=== PATIENT | male | born 1935 | race Caucasian/White ===

== ENCOUNTER → 2017-10-15 | Outpatient (CLI) | payer MEDICARE, BC ==
[~2017-10-15] MED LIST: EPINEPHRINE 1 MG/ML, 1ML ONE; LIDOCAINE/PF 1%, 30ML ONE; TAMS-11 PO; THROMBIN 5,000 UNIT VIAL TP ONE
== END | disposition home or self-care (01) ==
LOC: WOUND 08:49
PROVIDERS: ATTEND Internal Medicine Cardiovascular Disease
DX: Z01.818 Encounter for other preprocedural examination (principal); I25.2 Old myocardial infarction; I10 Essential (primary) hypertension; Z85.46 Personal history of malignant neoplasm of prostate; Z87.891 Personal history of nicotine dependence; Z85.51 Personal history of malignant neoplasm of bladder
CPT/HCPCS: G0463; J0171; J3490; WOU0463

== ENCOUNTER 2017-10-16 06:53 | Inpatient (IN) | payer MEDICARE, BC ==
[2017-10-07 13:58] VITALS: BP 163/91
[~2017-10-16] VITALS: Ht 177.8 cm; Wt 72.1 kg
[~2017-10-16 06:53] MED LIST changes: -EPINEPHRINE 1 MG/ML, 1ML ONE; -LIDOCAINE/PF 1%, 30ML ONE; -THROMBIN 5,000 UNIT VIAL TP ONE
[2017-10-16] MEDS ORDERED: LACTATED RINGERS 1,000 ML IV SCH (07:23)
[2017-10-16] MEDS ORDERED: LIDOCAINE 1%, 2ML SQ PRN (07:30)
[2017-10-16] MEDS ORDERED: MIDAZOLAM 1 MG/ML, 2ML ONE (08:08)
[2017-10-16] MEDS ORDERED: FENTANYL PF 100 MCG/2ML ONE ×3 (08:09→16:07)
[2017-10-16] MEDS ORDERED: ESMOLOL 100 MG/10 ML ONE (09:18)
[2017-10-16] MEDS ORDERED: PHENYLEPHRINE 10 MG/ML ONE (09:18)
[2017-10-16] MEDS ORDERED: LIDOCAINE 1%-EPI 1:100K, 30ML INFIL ONE (10:04)
[2017-10-16] MEDS ORDERED: THROMBIN 5,000 UNIT VIAL TP ONE ×2 (10:05→10:22)
[2017-10-16] MEDS ORDERED: LIDOCAINE/PF 1%, 30ML ONE (10:21)
[2017-10-16] MEDS ORDERED: CEFTRIAXONE 1,000 MG ONE ×2 (10:21→10:26)
[2017-10-16] MEDS ORDERED: EPINEPHRINE 1 MG/ML, 1ML ONE (10:22)
[2017-10-16] MEDS ORDERED: BUPIVACAINE/PF 0.5%, 30ML 62.5 ML in SODIUM CHLORIDE 0.9% 187.5 ML EPIDCONT SCH (11:00)
[2017-10-16] MEDS ORDERED: EPHEDRINE 50 MG/ML, 1ML ONE (11:19)
[2017-10-16] MEDS ORDERED: DEXAMETHASONE 4 MG/ML, 1ML ONE (11:20)
[2017-10-16] MEDS ORDERED: ROCURONIUM 10 MG/ML,10ML ONE (11:20)
[2017-10-16] MEDS ORDERED: PROPOFOL 10 MG/ML, 20ML ONE (11:20)
[2017-10-16] MEDS ORDERED: NEOSTIGMINE 1 MG/ML, 10ML ONE (11:20)
[2017-10-16] MEDS ORDERED: SUCCINYLCHOLINE 20 MG/ML, 10ML ONE (11:20)
[2017-10-16] MEDS ORDERED: ONDANSETRON 2MG/ML, 2ML ONE (11:20)
[2017-10-16] MEDS ORDERED: GLYCOPYRROLATE 0.2MG/1ML, 5ML ONE (11:20)
[2017-10-16] MEDS ORDERED: hydrALAzine 20 MG/ML, 1ML IV PRN (11:30)
[2017-10-16] MEDS ORDERED: MEPERIDINE/PF 25MG/0.5ML IVPush PRN (11:30)
[2017-10-16] MEDS ORDERED: PROMETHAZINE 25 MG/ML, 1ML IV PRN (11:30)
[2017-10-16] MEDS ORDERED: ALBUTEROL SULFATE 2.5 MG/3 ML NPPB PRN (11:30)
[2017-10-16] MEDS ORDERED: MIDAZOLAM 1 MG/ML, 2ML IV PRN (11:30)
[2017-10-16] MEDS ORDERED: HYDROcodone/APAP 7.5-325MG/15ML UDC PO PRN (11:30)
[2017-10-16] MEDS ORDERED: ONDANSETRON 2MG/ML, 2ML IVPush PRN (11:30)
[2017-10-16] MEDS ORDERED: LABETALOL 5MG/ML, 20ML IV PRN (11:30)
[2017-10-16] MEDS ORDERED: DIAZEPAM 5 MG/ML, 2ML IVPush PRN (11:30)
[2017-10-16] MEDS ORDERED: EPHEDRINE 50 MG/ML, 1ML IVPush PRN ×2 (11:30→17:30)
[2017-10-16] MEDS ORDERED: METOPROLOL 1 MG/ML, 5ML IV PRN (11:30)
[2017-10-16] MEDS ORDERED: ACETAMINOPHEN 325 MG TABLET PO PRN (11:30)
[2017-10-16] MEDS ORDERED: FENTANYL PF 100 MCG/2ML IV PRN (11:30)
[2017-10-16] MEDS ORDERED: OXYcodone 5 MG/5 ML ORAL.SOL UDC PO PRN (11:30)
[2017-10-16] MEDS ORDERED: HYDROmorphone 1 MG/ML, 1ML IV PRN (11:30)
[2017-10-16 15:32] LABS: ALBUMIN 2.6 g/dL (3.4-5.0); ANION GAP 13 mmol/L (5-15); CALCIUM 7.3 mg/dL (8.5-10.1); CHLORIDE 112 mmol/L (98-107); CREATININE 1.19 mg/dL (0.7-1.3)
[2017-10-16 16:18] LABS: TROPONIN I 0.022 ng/mL (0.000-0.045)
[2017-10-16 16:54] VITALS: BP 156/70
[2017-10-16] MEDS ORDERED: DO NOT GIVE XX SCH (17:30)
[2017-10-16] MEDS ORDERED: MEPERIDINE/PF 25MG/0.5ML IV PRN (17:30)
[2017-10-16] MEDS ORDERED: NALOXONE 0.4 MG/ML, 1ML IV PRN (17:30)
[2017-10-16] MEDS ORDERED: FENTANYL PF 100 MCG/2ML EPIDPUSH PRN (17:30)
[2017-10-16] MEDS ORDERED: DO NOT GIVE MC SCH (17:30)
[2017-10-16] MEDS ORDERED: METOCLOPRAMIDE 5 MG/ML, 2ML IV PRN (17:30)
[2017-10-16 19:39] VITALS: BP 108/67
[2017-10-16] MEDS ORDERED: METOPROLOL 1 MG/ML, 5ML IVPush PRN (20:00)
[2017-10-16] MEDS: D5%-0.45NACL+KCL 20MEQ 1,000 ML IV SCH (20:08)
[2017-10-16] MEDS: morphine SULFATE 10 MG/ML, 1ML IV PRN ×2 (20:33→23:36)
[2017-10-17] VITALS (8 sets, daily range): BP systolic 85–162; BP diastolic 47–79
[2017-10-17] MEDS: morphine SULFATE 10 MG/ML, 1ML IV PRN ×3 (03:01→22:07)
[2017-10-17] MEDS: D5%-0.45NACL+KCL 20MEQ 1,000 ML IV SCH ×3 (04:13→21:11)
[2017-10-17 05:46] LABS: ANION GAP 6 mmol/L (5-15); CALCIUM 7.6 mg/dL (8.5-10.1); CHLORIDE 109 mmol/L (98-107); CREATININE 1.25 mg/dL (0.7-1.3)
[2017-10-17] MEDS: ENOXAPARIN 40 MG/0.4 ML SQ SCH (08:00)
[2017-10-17] MEDS: CEFTRIAXONE PMX 2GM/50ML 50 ML IVPB SCH (09:32)
[2017-10-17] MEDS: ASPIRIN 81 MG TABLET EC PO SCH (09:42)
[2017-10-17] MEDS: METOPROLOL TARTRATE 25 MG TABLET PO SCH ×2 (09:42→21:12)
[2017-10-17] MEDS: BUPIVACAINE/PF 0.5%, 30ML 62.5 ML in SODIUM CHLORIDE 0.9% 187.5 ML EPIDCONT SCH (11:00)
[2017-10-18] VITALS (7 sets, daily range): BP systolic 107–156; BP diastolic 61–77
[2017-10-18] MEDS: D5%-0.45NACL+KCL 20MEQ 1,000 ML IV SCH ×3 (05:34→17:20)
[2017-10-18 05:45] LABS: CALCIUM 7.6 mg/dL (8.5-10.1); CHLORIDE 108 mmol/L (98-107); MEAN CORPUSCULAR VOLUME 88.4 fL (81-97); MEAN PLATELET VOLUME 7.9 fL (7.4-10.4); PLATELET COUNT 194 x10^3/uL (130-400); RED BLOOD COUNT 3.86 x10^6/uL (4.38-5.82); RED CELL DISTRIBUTION WIDTH 12.9 % (9.4-14.8)
[2017-10-18 05:53] LABS: ALANINE AMINOTRANSFERASE 17 U/L (12-78); ALBUMIN 2.4 g/dL (3.4-5.0); ALKALINE PHOSPHATASE 45 U/L (45-117); ANION GAP 5 mmol/L (5-15); BILIRUBIN,TOTAL 0.8 mg/dL (0.2-1.0); CREATININE 1.07 mg/dL (0.7-1.3); TOTAL PROTEIN 5.5 g/dL (6.4-8.2); TROPONIN I 0.166 ng/mL (0.000-0.045)
[2017-10-18 06:19] LABS: BASOPHILS # (AUTO) 0.04 x10^3/uL (0-0.1); BASOPHILS % (AUTO) 0 % (0-1); EOSINOPHILS # (AUTO) 0.09 x10^3/uL (0-0.4); EOSINOPHILS % (AUTO) 1 % (1-7); LYMPHOCYTES # (AUTO) 1.26 x10^3/uL (1-3.4); LYMPHOCYTES % (AUTO) 7 % (22-44); MD SCAN; MONOCYTES # (AUTO) 1.11 x10^3/uL (0.2-0.8); MONOCYTES % (AUTO) 6 % (2-9); NEUTROPHILS # (AUTO) 15.35 x10^3/uL (1.8-6.8); NEUTROPHILS % (AUTO) 86 % (42-75)
[2017-10-18] MEDS: ENOXAPARIN 40 MG/0.4 ML SQ SCH (08:00)
[2017-10-18] MEDS: ASPIRIN 81 MG TABLET EC PO SCH (09:26)
[2017-10-18] MEDS: CEFTRIAXONE PMX 2GM/50ML 50 ML IVPB SCH (09:26)
[2017-10-18] MEDS: METOPROLOL TARTRATE 25 MG TABLET PO SCH ×2 (09:28→17:21)
[2017-10-18] MEDS: BUPIVACAINE/PF 0.5%, 30ML 62.5 ML in SODIUM CHLORIDE 0.9% 187.5 ML EPIDCONT SCH (11:00)
[2017-10-18] MEDS ORDERED: METOPROLOL TARTRATE 25 MG TABLET PO SCH (18:00)
[2017-10-18] MEDS: HYDROcodone/APAP 5/325 TABLET PO PRN ×2 (18:50→23:34)
[2017-10-18] MEDS: DIPHENHYDRAMINE/ZINC CRM 2%, 30GM TP PRN (20:58)
[2017-10-18] MEDS: ATORVASTATIN 40 MG TABLET PO SCH (21:00)
[2017-10-19 01:32] VITALS: BP 125/70
[2017-10-19] MEDS: HYDROcodone/APAP 5/325 TABLET PO PRN ×2 (05:29→18:16)
[2017-10-19 08:34] VITALS: BP 130/77
[2017-10-19] MEDS: ASPIRIN 81 MG TABLET EC PO SCH (09:08)
[2017-10-19] MEDS: CEFTRIAXONE PMX 2GM/50ML 50 ML IVPB SCH (09:08)
[2017-10-19] MEDS: METOPROLOL TARTRATE 25 MG TABLET PO SCH ×2 (09:08→18:13)
[2017-10-19] MEDS: DIPHENHYDRAMINE/ZINC CRM 2%, 30GM TP PRN ×2 (09:08→22:17)
[2017-10-19] MEDS: ENOXAPARIN 40 MG/0.4 ML SQ SCH (09:09)
[2017-10-19] MEDS: BUPIVACAINE/PF 0.5%, 30ML 62.5 ML in SODIUM CHLORIDE 0.9% 187.5 ML EPIDCONT SCH (11:00)
[2017-10-19 13:36] VITALS: BP 146/71
[2017-10-19] MEDS: D5%-0.45NACL+KCL 20MEQ 1,000 ML IV SCH (13:47)
[2017-10-19] MEDS ORDERED: ALBUTEROL SULFATE 2.5 MG/3 ML ONE (16:17)
[2017-10-19] MEDS ORDERED: ALBUTEROL SULFATE 2.5 MG/3 ML NPPB PRN (16:30)
[2017-10-19 19:40] VITALS: BP 128/53
[2017-10-19] MEDS: ATORVASTATIN 40 MG TABLET PO SCH (20:29)
[2017-10-20] MEDS: D5%-0.45NACL+KCL 20MEQ 1,000 ML IV SCH (01:26)
[2017-10-20] MEDS: HYDROcodone/APAP 5/325 TABLET PO PRN (01:30)
[2017-10-20 01:43] VITALS: BP 126/65
[2017-10-20] MEDS: METOPROLOL TARTRATE 25 MG TABLET PO SCH (06:09)
[2017-10-20 07:02] VITALS: BP 158/74
[2017-10-20] MEDS: ENOXAPARIN 40 MG/0.4 ML SQ SCH (08:43)
[2017-10-20] MEDS: CEFTRIAXONE PMX 2GM/50ML 50 ML IVPB SCH (08:43)
[2017-10-20] MEDS: ASPIRIN 81 MG TABLET EC PO SCH (08:44)
[2017-10-20] MEDS: DIPHENHYDRAMINE/ZINC CRM 2%, 30GM TP PRN (08:49)
[2017-10-20] MEDS ORDERED: FUROSEMIDE 20 MG TABLET PO SCH (11:00)
[2017-10-20] MEDS: morphine SULFATE 10 MG/ML, 1ML IV PRN ×3 (11:33→17:14)
[2017-10-20] MEDS: ONDANSETRON 2MG/ML, 2ML IV PRN (11:33)
[2017-10-20 11:58] VITALS: BP 145/71
[2017-10-20 12:14] VITALS: BP 106/63
[2017-10-20] MEDS ORDERED: METRONIDAZOLE IV ONE (12:30)
[2017-10-20] MEDS ORDERED: [UNRECOGNIZED DRUG - MIXTURE] IV ONE (12:38)
[2017-10-20 12:44] VITALS: BP 151/70
[2017-10-20 13:22] VITALS: BP 121/63
[2017-10-20] MEDS ORDERED: PROPOFOL 10 MG/ML, 20ML ONE (14:25)
[2017-10-20] MEDS ORDERED: FENTANYL PF 100 MCG/2ML ONE (14:25)
[2017-10-20] MEDS ORDERED: SUCCINYLCHOLINE 20 MG/ML, 10ML ONE (14:25)
[2017-10-20] MEDS ORDERED: ROCURONIUM 10 MG/ML,10ML ONE (14:25)
[2017-10-20] MEDS ORDERED: VASOPRESSIN 20 UNIT/ML, 1ML ONE (14:25)
[2017-10-20] MEDS ORDERED: PROPOFOL 100 ML IV ONE (16:52)
[2017-10-20] MEDS ORDERED: morphine SULFATE 10 MG/ML, 1ML IVPush ONE (18:00)
[2017-10-20] MEDS ORDERED: MORPHINE SULFATE 4 MG/ML, 1ML IVPush ONE (18:00)
[2017-10-20] MEDS ORDERED: LIDOCAINE-MPF 1%, 2ML ENDO PRN (18:30)
[2017-10-20] MEDS ORDERED: PIPERACILLIN/TAZO/PMX 3.375GM 50 ML IV SCH (18:30)
[2017-10-20] MEDS ORDERED: PHARMACY MAY ADJ FOR RENAL FX MC SCH (18:30)
[2017-10-20] MEDS: SODIUM CHLORIDE 0.9% 1,000 ML IV SCH (19:37)
[2017-10-20] MEDS: PIPERACILLIN/TAZO 3.375 GM in SODIUM CHLORIDE 0.9% 50 ML IV SCH (19:37)
[2017-10-20] MEDS: METRONIDAZOLE PMX 500MG/100ML 100 ML IV SCH (20:47)
[2017-10-20] MEDS: ATORVASTATIN 40 MG TABLET PO SCH (21:00)
[2017-10-21] MEDS: PIPERACILLIN/TAZO 3.375 GM in SODIUM CHLORIDE 0.9% 50 ML IV SCH ×4 (00:01→18:15)
[2017-10-21] MEDS: morphine SULFATE 10 MG/ML, 1ML IV PRN ×3 (00:11→16:26)
[2017-10-21] MEDS: NOREPINEPHRINE 4 MG in SODIUM CHLORIDE 0.9% 246 ML IV PRN ×2 (01:19→06:32)
[2017-10-21] MEDS: PROPOFOL 100 ML IV PRN ×2 (01:20→07:30)
[2017-10-21] MEDS: SODIUM CHLORIDE 0.9% 1,000 ML IV SCH ×4 (02:30→18:15)
[2017-10-21 04:27] LABS: ALBUMIN 1.7 g/dL (3.4-5.0); ANION GAP 7 mmol/L (5-15); CHLORIDE 110 mmol/L (98-107)
[2017-10-21 04:30] VITALS: BP 126/52
[2017-10-21 04:30] LABS: ALANINE AMINOTRANSFERASE 11 U/L (12-78); ALKALINE PHOSPHATASE 47 U/L (45-117); BILIRUBIN,TOTAL 2.4 mg/dL (0.2-1.0); CREATININE 1.62 mg/dL (0.7-1.3); TOTAL PROTEIN 5.6 g/dL (6.4-8.2)
[2017-10-21 04:36] LABS: MEAN CORPUSCULAR HEMOGLOBIN 29.9 pg (27.5-34.5); MEAN CORPUSCULAR HGB CONC 33.9 g/dL (33.2-36.2); MEAN CORPUSCULAR VOLUME 88.1 fL (81-97); MEAN PLATELET VOLUME 7.4 fL (7.4-10.4); PLATELET COUNT 324 x10^3/uL (130-400); RED BLOOD COUNT 4.37 x10^6/uL (4.38-5.82); RED CELL DISTRIBUTION WIDTH 12.6 % (9.4-14.8)
[2017-10-21] MEDS: METRONIDAZOLE PMX 500MG/100ML 100 ML IV SCH ×3 (05:09→22:17)
[2017-10-21 05:39] LABS: MD YES
[2017-10-21 05:41] LABS: BAND#(MANUAL) 6.05 x10^3/uL; BANDS%(MANUAL) 31 % (0-7); LYMPH#(MANUAL) 0.98 x10^3/uL (1-3.4); LYMPHS% (MANUAL) 5 % (22-44); METAMYELOCYTES% (MANUAL) 1 % (0-1); MONOS#(MANUAL) 1.37 x10^3/uL (0.3-2.7); MONOS% (MANUAL) 7 % (2-9); SEG#(MANUAL) 10.92 x10^3/uL (1.8-6.8); SEGS% (MANUAL) 56 % (42-75)
[2017-10-21 05:42] LABS: PMNS WITH VACUOLES 1+
[2017-10-21 05:43] LABS: <PLATELET ESTIMATE> ADEQUATE; <PLT MORPHOLOGY> NORMAL PLT MORPH; POLYCHROMASIA 1+
[2017-10-21] MEDS: PANTOPRAZOLE 40 MG IV IV SCH (07:27)
[2017-10-21] MEDS: ENOXAPARIN 40 MG/0.4 ML SQ SCH (13:17)
[2017-10-21] MEDS: ASPIRIN 81 MG TABLET EC PO SCH (13:18)
[2017-10-21] MEDS: MELATONIN 5 MG TABLET PO PRN (22:17)
[2017-10-21] MEDS: ATORVASTATIN 40 MG TABLET PO SCH (22:17)
[2017-10-22] MEDS: PIPERACILLIN/TAZO 3.375 GM in SODIUM CHLORIDE 0.9% 50 ML IV SCH ×4 (00:54→19:40)
[2017-10-22] MEDS: SODIUM CHLORIDE 0.9% 1,000 ML IV SCH ×5 (03:08→22:45)
[2017-10-22 04:00] VITALS: BP 120/52
[2017-10-22 04:28] LABS: BASOPHILS % (AUTO) 0 % (0-1); EOSINOPHILS # (AUTO) 0.08 x10^3/uL (0-0.4); EOSINOPHILS % (AUTO) 1 % (1-7); LYMPHOCYTES % (AUTO) 3 % (22-44); MD NO; MEAN CORPUSCULAR HEMOGLOBIN 30.2 pg (27.5-34.5); MEAN CORPUSCULAR HGB CONC 33.9 g/dL (33.2-36.2); MEAN CORPUSCULAR VOLUME 89.1 fL (81-97); MEAN PLATELET VOLUME 7.1 fL (7.4-10.4); MONOCYTES # (AUTO) 0.67 x10^3/uL (0.2-0.8); MONOCYTES % (AUTO) 4 % (2-9); NEUTROPHILS # (AUTO) 15.02 x10^3/uL (1.8-6.8); NEUTROPHILS % (AUTO) 92 % (42-75); PLATELET COUNT 271 x10^3/uL (130-400); RED BLOOD COUNT 3.55 x10^6/uL (4.38-5.82); RED CELL DISTRIBUTION WIDTH 13.2 % (9.4-14.8)
[2017-10-22] MEDS: METRONIDAZOLE PMX 500MG/100ML 100 ML IV SCH ×3 (05:31→21:25)
[2017-10-22] MEDS: PANTOPRAZOLE 40 MG IV IV SCH (07:42)
[2017-10-22] MEDS: ASPIRIN 81 MG TABLET EC PO SCH (07:42)
[2017-10-22 08:37] LABS: ALANINE AMINOTRANSFERASE 12 U/L (12-78); ALBUMIN 1.5 g/dL (3.4-5.0); ANION GAP 7 mmol/L (5-15); CHLORIDE 117 mmol/L (98-107); CREATININE 1.51 mg/dL (0.7-1.3)
[2017-10-22 08:40] LABS: ALKALINE PHOSPHATASE 48 U/L (45-117); BILIRUBIN,TOTAL 1.4 mg/dL (0.2-1.0); TOTAL PROTEIN 5.3 g/dL (6.4-8.2)
[2017-10-22] MEDS ORDERED: DOCUSATE 100 MG CAPSULE PO PRN (12:00)
[2017-10-22 12:05] VITALS: BP 118/65
[2017-10-22] MEDS: ENOXAPARIN 40 MG/0.4 ML SQ SCH (13:52)
[2017-10-22] MEDS: ONDANSETRON 2MG/ML, 2ML IV PRN (19:38)
[2017-10-22] MEDS: morphine SULFATE 10 MG/ML, 1ML IV PRN (19:59)
[2017-10-22] MEDS: MELATONIN 5 MG TABLET PO PRN (21:25)
[2017-10-22] MEDS: ATORVASTATIN 40 MG TABLET PO SCH (21:25)
[2017-10-22 22:02] VITALS: BP 126/65
[2017-10-23] MEDS: morphine SULFATE 10 MG/ML, 1ML IV PRN ×6 (00:09→21:40)
[2017-10-23] MEDS: PIPERACILLIN/TAZO 3.375 GM in SODIUM CHLORIDE 0.9% 50 ML IV SCH ×4 (01:15→23:11)
[2017-10-23 01:38] VITALS: BP 136/67
[2017-10-23] MEDS: SODIUM CHLORIDE 0.9% 1,000 ML IV SCH ×3 (04:11→23:11)
[2017-10-23] MEDS: METRONIDAZOLE PMX 500MG/100ML 100 ML IV SCH ×3 (04:54→21:33)
[2017-10-23 05:32] LABS: MEAN CORPUSCULAR HEMOGLOBIN 29.9 pg (27.5-34.5); MEAN CORPUSCULAR HGB CONC 33.7 g/dL (33.2-36.2); MEAN CORPUSCULAR VOLUME 88.7 fL (81-97); MEAN PLATELET VOLUME 7.3 fL (7.4-10.4); PLATELET COUNT 302 x10^3/uL (130-400); RED BLOOD COUNT 3.51 x10^6/uL (4.38-5.82); RED CELL DISTRIBUTION WIDTH 13.2 % (9.4-14.8)
[2017-10-23 06:02] LABS: BASOPHILS % (AUTO) 0 % (0-1); EOSINOPHILS # (AUTO) 0.19 x10^3/uL (0-0.4); EOSINOPHILS % (AUTO) 1 % (1-7); LYMPHOCYTES # (AUTO) 0.82 x10^3/uL (1-3.4); LYMPHOCYTES % (AUTO) 4 % (22-44); MD SCAN; MONOCYTES % (AUTO) 4 % (2-9); NEUTROPHILS # (AUTO) 18.42 x10^3/uL (1.8-6.8); NEUTROPHILS % (AUTO) 92 % (42-75)
[2017-10-23 08:01] VITALS: BP 149/73
[2017-10-23] MEDS: ONDANSETRON 2MG/ML, 2ML IV PRN ×2 (08:06→18:45)
[2017-10-23] MEDS: PANTOPRAZOLE 40 MG IV IV SCH (08:06)
[2017-10-23] MEDS: ASPIRIN 81 MG TABLET EC PO SCH (09:51)
[2017-10-23 12:11] LABS: ALBUMIN 1.5 g/dL (3.4-5.0); CALCIUM 7.5 mg/dL (8.5-10.1); CHLORIDE 120 mmol/L (98-107)
[2017-10-23 12:22] LABS: ALANINE AMINOTRANSFERASE 10 U/L (12-78); ALKALINE PHOSPHATASE 74 U/L (45-117); ANION GAP 10 mmol/L (5-15); BILIRUBIN,TOTAL 0.9 mg/dL (0.2-1.0); CREATININE 1.09 mg/dL (0.7-1.3); PREALBUMIN 6.6 mg/dL (20.0-40.0); TOTAL PROTEIN 5.8 g/dL (6.4-8.2)
[2017-10-23] MEDS: DIPHENHYDRAMINE/ZINC CRM 2%, 30GM TP PRN (13:57)
[2017-10-23 14:00] VITALS: BP 156/75
[2017-10-23] MEDS ORDERED: POTASSIUM PHOSPHATE 44 MEQ in DEXTROSE 5% 500 ML IV ONE (14:00)
[2017-10-23] MEDS: ENOXAPARIN 40 MG/0.4 ML SQ SCH (15:12)
[2017-10-23] MEDS ORDERED: SODIUM CHLORIDE 0.9% 1,000 ML IV SCH ×2 (16:30→17:00)
[2017-10-23] MEDS ORDERED: FILTER, DISP 1.2 MICRON FOR TPN/PVN IV PRN (17:00)
[2017-10-23] MEDS ORDERED: AMINO ACID 10% IV SCH (17:00)
[2017-10-23] MEDS ORDERED: [UNRECOGNIZED DRUG - OTHER] IV SCH (17:00)
[2017-10-23] MEDS ORDERED: DEXTROSE 70% IV SCH (17:00)
[2017-10-23] MEDS ORDERED: DEXTROSE 50%, 50ML SYRINGE IVPush PRN (17:00)
[2017-10-23] MEDS ORDERED: FAT EMULSIONS IV SCH (17:00)
[2017-10-23] MEDS ORDERED: DEXTROSE 10% 500 ML IV PRN (17:00)
[2017-10-23] MEDS ORDERED: TPN PER PHARMACY MC PRN (17:00)
[2017-10-23 20:06] VITALS: BP 136/69
[2017-10-23] MEDS: ATORVASTATIN 40 MG TABLET PO SCH (21:34)
[2017-10-23] MEDS: INSULIN REGULAR MEDIUM DOSE Q6H X 48HRS SQ-INSULIN SCH (23:10)
[2017-10-24] MEDS: morphine SULFATE 10 MG/ML, 1ML IV PRN ×5 (00:59→21:21)
[2017-10-24] MEDS: MELATONIN 5 MG TABLET PO PRN ×2 (00:59→22:50)
[2017-10-24 02:30] VITALS: BP 143/72
[2017-10-24] MEDS: PIPERACILLIN/TAZO 3.375 GM in SODIUM CHLORIDE 0.9% 50 ML IV SCH ×3 (03:26→14:57)
[2017-10-24] MEDS: INSULIN REGULAR MEDIUM DOSE Q6H X 48HRS SQ-INSULIN SCH ×4 (03:29→20:39)
[2017-10-24] MEDS: METRONIDAZOLE PMX 500MG/100ML 100 ML IV SCH ×3 (05:38→20:31)
[2017-10-24 06:37] LABS: MEAN CORPUSCULAR HEMOGLOBIN 29.7 pg (27.5-34.5); MEAN CORPUSCULAR HGB CONC 33.6 g/dL (33.2-36.2); MEAN CORPUSCULAR VOLUME 88.2 fL (81-97); MEAN PLATELET VOLUME 6.6 fL (7.4-10.4); PLATELET COUNT 309 x10^3/uL (130-400); RED BLOOD COUNT 3.39 x10^6/uL (4.38-5.82); RED CELL DISTRIBUTION WIDTH 13.4 % (9.4-14.8)
[2017-10-24 06:49] LABS: ANION GAP 5 mmol/L (5-15); CALCIUM 7.5 mg/dL (8.5-10.1); CHLORIDE 121 mmol/L (98-107); CREATININE 0.95 mg/dL (0.7-1.3); TRIGLYCERIDES 116 mg/dL (50-200)
[2017-10-24 07:27] LABS: BASOPHILS # (AUTO) 0.02 x10^3/uL (0-0.1); BASOPHILS % (AUTO) 0 % (0-1); EOSINOPHILS # (AUTO) 0.53 x10^3/uL (0-0.4); EOSINOPHILS % (AUTO) 3 % (1-7); LYMPHOCYTES # (AUTO) 0.75 x10^3/uL (1-3.4); LYMPHOCYTES % (AUTO) 4 % (22-44); MD SCAN; MONOCYTES # (AUTO) 0.98 x10^3/uL (0.2-0.8); MONOCYTES % (AUTO) 6 % (2-9); NEUTROPHILS # (AUTO) 14.97 x10^3/uL (1.8-6.8); NEUTROPHILS % (AUTO) 87 % (42-75)
[2017-10-24 08:19] VITALS: BP 169/78
[2017-10-24] MEDS: PANTOPRAZOLE 40 MG IV IV SCH (09:05)
[2017-10-24] MEDS: ASPIRIN 81 MG TABLET EC PO SCH (09:06)
[2017-10-24] MEDS: ENOXAPARIN 40 MG/0.4 ML SQ SCH (13:21)
[2017-10-24 14:05] VITALS: BP 156/72
[2017-10-24] MEDS ORDERED: [UNRECOGNIZED DRUG - OTHER] IV SCH (17:00)
[2017-10-24] MEDS ORDERED: DEXTROSE 70% IV SCH (17:00)
[2017-10-24] MEDS ORDERED: FAT EMULSIONS IV SCH (17:00)
[2017-10-24] MEDS ORDERED: AMINO ACID 10% IV SCH (17:00)
[2017-10-24] MEDS: FILTER, DISP 1.2 MICRON FOR TPN/PVN IV PRN (17:12)
[2017-10-24] MEDS: ATORVASTATIN 40 MG TABLET PO SCH (20:31)
[2017-10-24 20:51] VITALS: BP 147/70
[2017-10-25 00:58] VITALS: BP 145/66
[2017-10-25] MEDS: morphine SULFATE 10 MG/ML, 1ML IV PRN ×2 (02:45→09:26)
[2017-10-25] MEDS: PIPERACILLIN/TAZO/PMX 3.375GM 50 ML IV SCH ×4 (02:47→22:02)
[2017-10-25] MEDS: INSULIN REGULAR MEDIUM DOSE Q6H X 48HRS SQ-INSULIN SCH ×3 (02:57→15:00)
[2017-10-25] MEDS: METRONIDAZOLE PMX 500MG/100ML 100 ML IV SCH ×3 (05:38→19:52)
[2017-10-25 06:46] LABS: MEAN CORPUSCULAR HEMOGLOBIN 29.2 pg (27.5-34.5); MEAN CORPUSCULAR HGB CONC 33.3 g/dL (33.2-36.2); MEAN CORPUSCULAR VOLUME 87.7 fL (81-97); MEAN PLATELET VOLUME 6.9 fL (7.4-10.4); PLATELET COUNT 272 x10^3/uL (130-400); RED BLOOD COUNT 3.38 x10^6/uL (4.38-5.82); RED CELL DISTRIBUTION WIDTH 13.3 % (9.4-14.8)
[2017-10-25 06:57] LABS: ANION GAP 6 mmol/L (5-15); CALCIUM 7.1 mg/dL (8.5-10.1); CHLORIDE 119 mmol/L (98-107); CREATININE 1.05 mg/dL (0.7-1.3)
[2017-10-25 07:44] LABS: MD SCAN
[2017-10-25 07:45] LABS: BASOPHILS % (AUTO) 0 % (0-1); EOSINOPHILS # (AUTO) 0.42 x10^3/uL (0-0.4); EOSINOPHILS % (AUTO) 2 % (1-7); LYMPHOCYTES % (AUTO) 4 % (22-44); MONOCYTES # (AUTO) 0.93 x10^3/uL (0.2-0.8); MONOCYTES % (AUTO) 5 % (2-9); NEUTROPHILS # (AUTO) 15.93 x10^3/uL (1.8-6.8); NEUTROPHILS % (AUTO) 88 % (42-75)
[2017-10-25] MEDS: ASPIRIN 81 MG TABLET EC PO SCH (08:00)
[2017-10-25] MEDS: PANTOPRAZOLE 40 MG IV IV SCH (08:00)
[2017-10-25 08:31] VITALS: BP 163/82
[2017-10-25 13:34] VITALS: BP 162/61
[2017-10-25] MEDS: ENOXAPARIN 40 MG/0.4 ML SQ SCH (15:00)
[2017-10-25] MEDS ORDERED: [UNRECOGNIZED DRUG - OTHER] IV SCH (17:00)
[2017-10-25] MEDS ORDERED: AMINO ACID 10% IV SCH (17:00)
[2017-10-25] MEDS ORDERED: DEXTROSE 70% IV SCH (17:00)
[2017-10-25] MEDS ORDERED: FAT EMULSIONS IV SCH (17:00)
[2017-10-25] MEDS: HYDROcodone/APAP 5/325 TABLET PO PRN ×2 (17:21→22:02)
[2017-10-25] MEDS: FILTER, DISP 1.2 MICRON FOR TPN/PVN IV PRN (17:25)
[2017-10-25] MEDS: ATORVASTATIN 40 MG TABLET PO SCH (19:52)
[2017-10-25 20:10] VITALS: BP 159/79
[2017-10-25] MEDS: DIPHENHYDRAMINE 25 MG CAPSULE PO PRN (22:04)
[2017-10-26 02:30] VITALS: BP 162/73
[2017-10-26] MEDS: HYDROcodone/APAP 5/325 TABLET PO PRN ×4 (02:46→21:14)
[2017-10-26] MEDS: PIPERACILLIN/TAZO/PMX 3.375GM 50 ML IV SCH ×4 (04:00→21:14)
[2017-10-26] MEDS: METRONIDAZOLE PMX 500MG/100ML 100 ML IV SCH ×3 (04:42→21:50)
[2017-10-26 07:20] LABS: ANION GAP 6 mmol/L (5-15); CALCIUM 7.4 mg/dL (8.5-10.1); CHLORIDE 116 mmol/L (98-107); CREATININE 0.86 mg/dL (0.7-1.3); TRIGLYCERIDES 121 mg/dL (50-200)
[2017-10-26 07:25] VITALS: BP 166/79
[2017-10-26 07:31] LABS: MEAN CORPUSCULAR HEMOGLOBIN 29.9 pg (27.5-34.5); MEAN CORPUSCULAR HGB CONC 34.2 g/dL (33.2-36.2); MEAN CORPUSCULAR VOLUME 87.3 fL (81-97); MEAN PLATELET VOLUME 7.1 fL (7.4-10.4); PLATELET COUNT 328 x10^3/uL (130-400); RED CELL DISTRIBUTION WIDTH 13.6 % (9.4-14.8)
[2017-10-26 07:55] LABS: BASOPHILS # (AUTO) 0.04 x10^3/uL (0-0.1); BASOPHILS % (AUTO) 0 % (0-1); EOSINOPHILS % (AUTO) 2 % (1-7); LYMPHOCYTES # (AUTO) 0.85 x10^3/uL (1-3.4); LYMPHOCYTES % (AUTO) 4 % (22-44); MD SCAN; MONOCYTES # (AUTO) 0.92 x10^3/uL (0.2-0.8); MONOCYTES % (AUTO) 4 % (2-9); NEUTROPHILS # (AUTO) 20.87 x10^3/uL (1.8-6.8); NEUTROPHILS % (AUTO) 91 % (42-75)
[2017-10-26] MEDS: PANTOPRAZOLE 40 MG IV IV SCH (09:23)
[2017-10-26] MEDS: ASPIRIN 81 MG TABLET EC PO SCH (09:24)
[2017-10-26] MEDS: INSULIN REGULAR MEDIUM DOSE QDAY SQ-INSULIN SCH (09:44)
[2017-10-26] MEDS: ENOXAPARIN 40 MG/0.4 ML SQ SCH (15:09)
[2017-10-26] MEDS: ONDANSETRON 2MG/ML, 2ML IV PRN (15:40)
[2017-10-26] MEDS ORDERED: AMINO ACID 10% IV SCH (17:00)
[2017-10-26] MEDS ORDERED: FAT EMULSIONS IV SCH (17:00)
[2017-10-26] MEDS ORDERED: [UNRECOGNIZED DRUG - OTHER] IV SCH (17:00)
[2017-10-26] MEDS ORDERED: DEXTROSE 70% IV SCH (17:00)
[2017-10-26 19:08] VITALS: BP 150/72
[2017-10-26] MEDS: SODIUM CHLORIDE 0.9% 1,000 ML IV SCH (19:42)
[2017-10-26] MEDS: ATORVASTATIN 40 MG TABLET PO SCH (21:14)
[2017-10-27] MEDS: HYDROcodone/APAP 5/325 TABLET PO PRN ×3 (01:55→19:14)
[2017-10-27 02:04] VITALS: BP 150/76
[2017-10-27] MEDS: PIPERACILLIN/TAZO/PMX 3.375GM 50 ML IV SCH ×3 (03:24→16:19)
[2017-10-27] MEDS: METRONIDAZOLE PMX 500MG/100ML 100 ML IV SCH ×3 (05:06→21:00)
[2017-10-27 05:30] LABS: MEAN CORPUSCULAR HEMOGLOBIN 29.7 pg (27.5-34.5); MEAN CORPUSCULAR HGB CONC 34.1 g/dL (33.2-36.2); MEAN PLATELET VOLUME 7.4 fL (7.4-10.4); PLATELET COUNT 371 x10^3/uL (130-400); RED BLOOD COUNT 3.31 x10^6/uL (4.38-5.82); RED CELL DISTRIBUTION WIDTH 13.6 % (9.4-14.8)
[2017-10-27 05:36] LABS: ANION GAP 7 mmol/L (5-15); CALCIUM 7.5 mg/dL (8.5-10.1); CHLORIDE 113 mmol/L (98-107); CREATININE 0.88 mg/dL (0.7-1.3)
[2017-10-27] MEDS ORDERED: OMNIPAQUE 350 MG/ML, 100ML BOTTLE ONE (05:54)
[2017-10-27 06:56] LABS: BASOPHILS # (AUTO) 0.01 x10^3/uL (0-0.1); BASOPHILS % (AUTO) 0 % (0-1); EOSINOPHILS # (AUTO) 0.49 x10^3/uL (0-0.4); EOSINOPHILS % (AUTO) 2 % (1-7); LYMPHOCYTES # (AUTO) 1.01 x10^3/uL (1-3.4); LYMPHOCYTES % (AUTO) 5 % (22-44); MD SCAN; MONOCYTES # (AUTO) 1.08 x10^3/uL (0.2-0.8); MONOCYTES % (AUTO) 5 % (2-9); NEUTROPHILS # (AUTO) 19.51 x10^3/uL (1.8-6.8); NEUTROPHILS % (AUTO) 88 % (42-75)
[2017-10-27 08:00] VITALS: BP 150/81
[2017-10-27] MEDS: INSULIN REGULAR MEDIUM DOSE QDAY SQ-INSULIN SCH (08:23)
[2017-10-27] MEDS: ASPIRIN 81 MG TABLET EC PO SCH (08:41)
[2017-10-27] MEDS: PANTOPRAZOLE 40 MG IV IV SCH (08:42)
[2017-10-27] MEDS ORDERED: SODIUM CHLORIDE 0.9% 1,000 ML IV SCH (09:11)
[2017-10-27] MEDS: FUROSEMIDE 40 MG TABLET PO SCH (12:54)
[2017-10-27] MEDS: ONDANSETRON 2MG/ML, 2ML IV PRN ×2 (12:58→19:14)
[2017-10-27] MEDS: ENOXAPARIN 40 MG/0.4 ML SQ SCH (13:31)
[2017-10-27 15:46] VITALS: BP 144/69
[2017-10-27] MEDS ORDERED: DEXTROSE 70% IV SCH (17:00)
[2017-10-27] MEDS ORDERED: FAT EMULSIONS IV SCH (17:00)
[2017-10-27] MEDS ORDERED: AMINO ACID 10% IV SCH (17:00)
[2017-10-27] MEDS ORDERED: [UNRECOGNIZED DRUG - OTHER] IV SCH (17:00)
[2017-10-27 19:34] VITALS: BP 148/74
[2017-10-27] MEDS ORDERED: PROMETHAZINE 25 MG/ML, 1ML ONE (20:23)
[2017-10-27] MEDS: PROMETHAZINE 25 MG/ML, 1ML IM PRN (20:30)
[2017-10-27] MEDS: POTASSIUM CHLORIDE 20 MEQ TAB.ER.PRT PO SCH (21:00)
[2017-10-27] MEDS: ATORVASTATIN 40 MG TABLET PO SCH (21:00)
[2017-10-27] MEDS: morphine SULFATE 10 MG/ML, 1ML IV PRN (22:43)
[2017-10-28] MEDS: PIPERACILLIN/TAZO/PMX 3.375GM 50 ML IV SCH ×5 (00:20→21:49)
[2017-10-28 01:33] VITALS: BP 140/76
[2017-10-28] MEDS: morphine SULFATE 10 MG/ML, 1ML IV PRN (04:44)
[2017-10-28] MEDS: METRONIDAZOLE PMX 500MG/100ML 100 ML IV SCH ×3 (04:44→22:26)
[2017-10-28 06:32] LABS: MEAN CORPUSCULAR HEMOGLOBIN 29.4 pg (27.5-34.5); MEAN CORPUSCULAR HGB CONC 33.8 g/dL (33.2-36.2); MEAN PLATELET VOLUME 7.4 fL (7.4-10.4); PLATELET COUNT 490 x10^3/uL (130-400); RED BLOOD COUNT 3.45 x10^6/uL (4.38-5.82); RED CELL DISTRIBUTION WIDTH 13.2 % (9.4-14.8)
[2017-10-28 06:40] LABS: ANION GAP 6 mmol/L (5-15); CALCIUM 7.6 mg/dL (8.5-10.1); CHLORIDE 110 mmol/L (98-107); CREATININE 1.04 mg/dL (0.7-1.3)
[2017-10-28 06:43] LABS: PREALBUMIN 11.2 mg/dL (20.0-40.0)
[2017-10-28 07:41] LABS: BASOPHILS # (AUTO) 0.06 x10^3/uL (0-0.1); BASOPHILS % (AUTO) 0 % (0-1); EOSINOPHILS # (AUTO) 0.47 x10^3/uL (0-0.4); EOSINOPHILS % (AUTO) 3 % (1-7); LYMPHOCYTES # (AUTO) 0.91 x10^3/uL (1-3.4); LYMPHOCYTES % (AUTO) 5 % (22-44); MD SCAN; MONOCYTES % (AUTO) 6 % (2-9); NEUTROPHILS # (AUTO) 16.24 x10^3/uL (1.8-6.8); NEUTROPHILS % (AUTO) 86 % (42-75)
[2017-10-28 08:38] VITALS: BP 135/70
[2017-10-28] MEDS: ONDANSETRON 2MG/ML, 2ML IV PRN ×3 (08:47→22:26)
[2017-10-28] MEDS: PANTOPRAZOLE 40 MG IV IV SCH (08:49)
[2017-10-28] MEDS: INSULIN REGULAR MEDIUM DOSE QDAY SQ-INSULIN SCH (08:50)
[2017-10-28] MEDS: POTASSIUM CHLORIDE 20 MEQ TAB.ER.PRT PO SCH ×2 (08:53→20:42)
[2017-10-28] MEDS: FUROSEMIDE 40 MG TABLET PO SCH (08:53)
[2017-10-28] MEDS: ASPIRIN 81 MG TABLET EC PO SCH (08:53)
[2017-10-28] MEDS: PROMETHAZINE 25 MG/ML, 1ML IM PRN ×3 (10:14→20:15)
[2017-10-28] MEDS: [UNRECOGNIZED DRUG - REMARK] SQ-INSULIN SCH ×3 (11:15→21:52)
[2017-10-28] MEDS: ENOXAPARIN 40 MG/0.4 ML SQ SCH (13:53)
[2017-10-28 14:46] VITALS: BP 125/67
[2017-10-28] MEDS ORDERED: FAT EMULSIONS IV ONE (17:00)
[2017-10-28] MEDS ORDERED: MULTIVITAMIN IV SCH (17:00)
[2017-10-28] MEDS ORDERED: [UNRECOGNIZED DRUG - OTHER] IV SCH (17:00)
[2017-10-28] MEDS ORDERED: POTASSIUM ACETATE IV SCH (17:00)
[2017-10-28] MEDS ORDERED: AMINO ACIDS IV SCH (17:00)
[2017-10-28] MEDS ORDERED: DEXTROSE IV SCH (17:00)
[2017-10-28 20:12] VITALS: BP 145/67
[2017-10-28] MEDS: ATORVASTATIN 40 MG TABLET PO SCH (21:45)
[2017-10-28] MEDS: DIPHENHYDRAMINE 25 MG CAPSULE PO PRN (22:29)
[2017-10-28] MEDS: HYDROcodone/APAP 5/325 TABLET PO PRN (23:11)
[2017-10-29 03:50] VITALS: BP 129/69
[2017-10-29] MEDS: PIPERACILLIN/TAZO/PMX 3.375GM 50 ML IV SCH ×4 (04:06→21:28)
[2017-10-29] MEDS: METRONIDAZOLE PMX 500MG/100ML 100 ML IV SCH ×3 (05:20→20:06)
[2017-10-29] MEDS: ONDANSETRON 2MG/ML, 2ML IV PRN (05:27)
[2017-10-29 05:43] LABS: MEAN CORPUSCULAR HEMOGLOBIN 29.6 pg (27.5-34.5); MEAN CORPUSCULAR HGB CONC 33.9 g/dL (33.2-36.2); MEAN CORPUSCULAR VOLUME 87.5 fL (81-97); MEAN PLATELET VOLUME 7.5 fL (7.4-10.4); PLATELET COUNT 493 x10^3/uL (130-400); RED BLOOD COUNT 3.36 x10^6/uL (4.38-5.82); RED CELL DISTRIBUTION WIDTH 13.6 % (9.4-14.8)
[2017-10-29 05:57] LABS: ANION GAP 6 mmol/L (5-15); CALCIUM 7.5 mg/dL (8.5-10.1); CHLORIDE 106 mmol/L (98-107); CREATININE 1.15 mg/dL (0.7-1.3); TRIGLYCERIDES 106 mg/dL (50-200)
[2017-10-29 06:11] LABS: BASOPHILS # (AUTO) 0.04 x10^3/uL (0-0.1); BASOPHILS % (AUTO) 0 % (0-1); EOSINOPHILS # (AUTO) 0.54 x10^3/uL (0-0.4); EOSINOPHILS % (AUTO) 3 % (1-7); LYMPHOCYTES # (AUTO) 1.05 x10^3/uL (1-3.4); LYMPHOCYTES % (AUTO) 6 % (22-44); MD SCAN; MONOCYTES # (AUTO) 1.27 x10^3/uL (0.2-0.8); MONOCYTES % (AUTO) 7 % (2-9); NEUTROPHILS # (AUTO) 16.07 x10^3/uL (1.8-6.8); NEUTROPHILS % (AUTO) 85 % (42-75)
[2017-10-29 07:33] VITALS: BP 116/66
[2017-10-29] MEDS: PANTOPRAZOLE 40 MG IV IV SCH (08:11)
[2017-10-29] MEDS: [UNRECOGNIZED DRUG - REMARK] SQ-INSULIN SCH ×4 (08:11→20:11)
[2017-10-29] MEDS: POTASSIUM CHLORIDE 20 MEQ TAB.ER.PRT PO SCH ×2 (08:13→20:05)
[2017-10-29] MEDS: ASPIRIN 81 MG TABLET EC PO SCH (09:00)
[2017-10-29] MEDS: FUROSEMIDE 40 MG TABLET PO SCH (09:53)
[2017-10-29 13:16] VITALS: BP 126/70
[2017-10-29] MEDS: ENOXAPARIN 40 MG/0.4 ML SQ SCH (14:00)
[2017-10-29] MEDS ORDERED: MAGNESIUM SULFATE IV SCH (17:00)
[2017-10-29] MEDS ORDERED: [UNRECOGNIZED DRUG - OTHER] IV SCH (17:00)
[2017-10-29] MEDS ORDERED: POTASSIUM ACETATE IV SCH (17:00)
[2017-10-29] MEDS ORDERED: AMINO ACIDS IV SCH (17:00)
[2017-10-29] MEDS ORDERED: DEXTROSE IV SCH (17:00)
[2017-10-29] MEDS ORDERED: FAT EMULSIONS IV ONE (17:00)
[2017-10-29] MEDS: FILTER, DISP 1.2 MICRON FOR TPN/PVN IV PRN (17:19)
[2017-10-29] MEDS: DIPHENHYDRAMINE 25 MG CAPSULE PO PRN (20:05)
[2017-10-29] MEDS: ATORVASTATIN 40 MG TABLET PO SCH (20:05)
[2017-10-29] MEDS: HYDROcodone/APAP 5/325 TABLET PO PRN (21:26)
[2017-10-29 21:40] VITALS: BP 126/68
[2017-10-30] MEDS: HYDROcodone/APAP 5/325 TABLET PO PRN ×2 (01:39→20:41)
[2017-10-30] MEDS: MELATONIN 5 MG TABLET PO PRN ×2 (01:40→20:40)
[2017-10-30 02:54] VITALS: BP 120/70
[2017-10-30] MEDS: PIPERACILLIN/TAZO/PMX 3.375GM 50 ML IV SCH ×4 (03:14→23:25)
[2017-10-30] MEDS: METRONIDAZOLE PMX 500MG/100ML 100 ML IV SCH ×3 (04:35→20:41)
[2017-10-30 05:40] LABS: MEAN CORPUSCULAR HEMOGLOBIN 29.5 pg (27.5-34.5); MEAN CORPUSCULAR HGB CONC 33.8 g/dL (33.2-36.2); MEAN CORPUSCULAR VOLUME 87.2 fL (81-97); MEAN PLATELET VOLUME 7.8 fL (7.4-10.4); PLATELET COUNT 517 x10^3/uL (130-400); RED BLOOD COUNT 3.26 x10^6/uL (4.38-5.82); RED CELL DISTRIBUTION WIDTH 13.6 % (9.4-14.8)
[2017-10-30 05:47] LABS: ANION GAP 8 mmol/L (5-15); CALCIUM 7.7 mg/dL (8.5-10.1); CHLORIDE 107 mmol/L (98-107); CREATININE 1.21 mg/dL (0.7-1.3)
[2017-10-30 06:23] LABS: BASOPHILS # (AUTO) 0.05 x10^3/uL (0-0.1); BASOPHILS % (AUTO) 0 % (0-1); EOSINOPHILS # (AUTO) 0.46 x10^3/uL (0-0.4); EOSINOPHILS % (AUTO) 2 % (1-7); LYMPHOCYTES % (AUTO) 6 % (22-44); MD SCAN; MONOCYTES # (AUTO) 1.16 x10^3/uL (0.2-0.8); MONOCYTES % (AUTO) 6 % (2-9); NEUTROPHILS # (AUTO) 17.44 x10^3/uL (1.8-6.8); NEUTROPHILS % (AUTO) 86 % (42-75)
[2017-10-30] MEDS: POTASSIUM CHLORIDE 20 MEQ TAB.ER.PRT PO SCH (08:10)
[2017-10-30] MEDS: ASPIRIN 81 MG TABLET EC PO SCH (08:10)
[2017-10-30] MEDS: FUROSEMIDE 40 MG TABLET PO SCH (08:10)
[2017-10-30] MEDS: [UNRECOGNIZED DRUG - REMARK] SQ-INSULIN SCH ×4 (08:11→20:48)
[2017-10-30] MEDS: PANTOPRAZOLE 40 MG IV IV SCH (08:13)
[2017-10-30 08:24] VITALS: BP 119/55
[2017-10-30] MEDS: ONDANSETRON 2MG/ML, 2ML IV PRN (12:39)
[2017-10-30] MEDS: ENOXAPARIN 40 MG/0.4 ML SQ SCH (13:44)
[2017-10-30 13:45] VITALS: BP 132/81
[2017-10-30] MEDS ORDERED: AMINO ACIDS IV SCH (17:00)
[2017-10-30] MEDS ORDERED: [UNRECOGNIZED DRUG - OTHER] IV SCH (17:00)
[2017-10-30] MEDS ORDERED: POTASSIUM ACETATE IV SCH (17:00)
[2017-10-30] MEDS ORDERED: FILTER, DISP 1.2 MICRON FOR TPN/PVN IV PRN (17:00)
[2017-10-30] MEDS ORDERED: DEXTROSE IV SCH (17:00)
[2017-10-30] MEDS ORDERED: POTASSIUM PHOSPHATE IV SCH (17:00)
[2017-10-30] MEDS ORDERED: FAT EMULSIONS IV ONE (17:00)
[2017-10-30 19:09] VITALS: BP 124/71
[2017-10-30] MEDS: ATORVASTATIN 40 MG TABLET PO SCH (20:40)
[2017-10-30] MEDS: POTASSIUM CHLORIDE 20 MEQ PACKET PO SCH (20:41)
[2017-10-31 01:00] VITALS: BP 129/68
[2017-10-31] MEDS: HYDROcodone/APAP 5/325 TABLET PO PRN ×2 (01:06→21:07)
[2017-10-31] MEDS: PIPERACILLIN/TAZO/PMX 3.375GM 50 ML IV SCH ×2 (05:14→11:26)
[2017-10-31 06:05] LABS: MEAN CORPUSCULAR HEMOGLOBIN 30.6 pg (27.5-34.5); MEAN CORPUSCULAR HGB CONC 35.1 g/dL (33.2-36.2); MEAN CORPUSCULAR VOLUME 87.2 fL (81-97); PLATELET COUNT 498 x10^3/uL (130-400); RED CELL DISTRIBUTION WIDTH 13.3 % (9.4-14.8)
[2017-10-31 06:10] LABS: ANION GAP 7 mmol/L (5-15); CALCIUM 7.7 mg/dL (8.5-10.1); CHLORIDE 107 mmol/L (98-107); CREATININE 1.12 mg/dL (0.7-1.3)
[2017-10-31] MEDS: METRONIDAZOLE PMX 500MG/100ML 100 ML IV SCH ×3 (06:16→21:48)
[2017-10-31 06:29] LABS: BASOPHILS # (AUTO) 0.01 x10^3/uL (0-0.1); BASOPHILS % (AUTO) 0 % (0-1); EOSINOPHILS % (AUTO) 4 % (1-7); LYMPHOCYTES # (AUTO) 1.08 x10^3/uL (1-3.4); LYMPHOCYTES % (AUTO) 6 % (22-44); MD SCAN; MONOCYTES # (AUTO) 1.26 x10^3/uL (0.2-0.8); MONOCYTES % (AUTO) 6 % (2-9); NEUTROPHILS # (AUTO) 16.54 x10^3/uL (1.8-6.8); NEUTROPHILS % (AUTO) 84 % (42-75)
[2017-10-31 07:00] VITALS: BP 138/72
[2017-10-31] MEDS: [UNRECOGNIZED DRUG - REMARK] SQ-INSULIN SCH ×4 (07:00→21:00)
[2017-10-31] MEDS: ONDANSETRON 2MG/ML, 2ML IV PRN (08:39)
[2017-10-31] MEDS: POTASSIUM CHLORIDE 20 MEQ PACKET PO SCH ×2 (08:42→19:40)
[2017-10-31] MEDS: ASPIRIN 81 MG TABLET EC PO SCH (08:42)
[2017-10-31] MEDS: PANTOPRAZOLE 40 MG IV IV SCH (08:43)
[2017-10-31] MEDS: FUROSEMIDE 40 MG TABLET PO SCH (08:44)
[2017-10-31] MEDS ORDERED: OMNIPAQUE 350 MG/ML, 100ML BOTTLE ONE (11:01)
[2017-10-31] MEDS: ENOXAPARIN 40 MG/0.4 ML SQ SCH (14:01)
[2017-10-31 15:20] VITALS: BP 132/71
[2017-10-31] MEDS ORDERED: FAT EMULSIONS IV ONE (17:00)
[2017-10-31] MEDS ORDERED: AMINO ACIDS IV SCH (17:00)
[2017-10-31] MEDS ORDERED: POTASSIUM ACETATE IV SCH (17:00)
[2017-10-31] MEDS ORDERED: FILTER, DISP 1.2 MICRON FOR TPN/PVN IV PRN (17:00)
[2017-10-31] MEDS ORDERED: [UNRECOGNIZED DRUG - OTHER] IV SCH (17:00)
[2017-10-31] MEDS ORDERED: DEXTROSE IV SCH (17:00)
[2017-10-31] MEDS: PIPERACILLIN/TAZO 3.375 GM in SODIUM CHLORIDE 0.9% 50 ML IV SCH ×2 (17:41→23:07)
[2017-10-31 19:28] VITALS: BP 126/58
[2017-10-31] MEDS: ATORVASTATIN 40 MG TABLET PO SCH (19:40)
[2017-10-31] MEDS: DIPHENHYDRAMINE 25 MG CAPSULE PO PRN (21:07)
[2017-11-01] MEDS: MELATONIN 5 MG TABLET PO PRN (00:08)
[2017-11-01] MEDS: HYDROcodone/APAP 5/325 TABLET PO PRN (00:08)
[2017-11-01 03:56] VITALS: BP 124/65
[2017-11-01] MEDS: PIPERACILLIN/TAZO 3.375 GM in SODIUM CHLORIDE 0.9% 50 ML IV SCH ×4 (05:16→22:31)
[2017-11-01] MEDS: morphine SULFATE 10 MG/ML, 1ML IV PRN ×2 (05:34→22:31)
[2017-11-01 05:52] LABS: MEAN CORPUSCULAR HEMOGLOBIN 29.2 pg (27.5-34.5); MEAN CORPUSCULAR HGB CONC 33.3 g/dL (33.2-36.2); MEAN CORPUSCULAR VOLUME 87.6 fL (81-97); MEAN PLATELET VOLUME 7.8 fL (7.4-10.4); PLATELET COUNT 642 x10^3/uL (130-400); RED BLOOD COUNT 3.41 x10^6/uL (4.38-5.82); RED CELL DISTRIBUTION WIDTH 13.5 % (9.4-14.8)
[2017-11-01] MEDS: METRONIDAZOLE PMX 500MG/100ML 100 ML IV SCH ×3 (06:08→20:56)
[2017-11-01 06:22] LABS: BASOPHILS # (AUTO) 0.09 x10^3/uL (0-0.1); BASOPHILS % (AUTO) 1 % (0-1); EOSINOPHILS # (AUTO) 0.52 x10^3/uL (0-0.4); EOSINOPHILS % (AUTO) 3 % (1-7); LYMPHOCYTES # (AUTO) 1.11 x10^3/uL (1-3.4); LYMPHOCYTES % (AUTO) 6 % (22-44); MD SCAN; MONOCYTES # (AUTO) 1.45 x10^3/uL (0.2-0.8); MONOCYTES % (AUTO) 8 % (2-9); NEUTROPHILS # (AUTO) 15.92 x10^3/uL (1.8-6.8); NEUTROPHILS % (AUTO) 83 % (42-75)
[2017-11-01] MEDS: [UNRECOGNIZED DRUG - REMARK] SQ-INSULIN SCH ×2 (07:00→12:46)
[2017-11-01 08:00] VITALS: BP 144/69
[2017-11-01] MEDS: ASPIRIN 81 MG TABLET EC PO SCH (08:22)
[2017-11-01] MEDS ORDERED: LIDOCAINE 1%, 20ML ONE (08:29)
[2017-11-01] MEDS ORDERED: FLUMAZENIL 0.1 MG/1 ML, 5ML ONE (08:41)
[2017-11-01] MEDS ORDERED: FENTANYL PF 100 MCG/2ML ONE ×2 (08:41)
[2017-11-01] MEDS ORDERED: MIDAZOLAM 1 MG/ML, 5ML ONE (08:41)
[2017-11-01] MEDS ORDERED: NALOXONE 1 MG/ML, 2ML ONE (08:41)
[2017-11-01] MEDS: FUROSEMIDE 40 MG TABLET PO SCH (12:44)
[2017-11-01] MEDS: PANTOPRAZOLE 40 MG IV IV SCH (12:44)
[2017-11-01] MEDS: POTASSIUM CHLORIDE 20 MEQ PACKET PO SCH ×2 (12:44→20:57)
[2017-11-01 13:04] VITALS: BP 136/70
[2017-11-01] MEDS ORDERED: FAT EMULSIONS IV ONE (17:00)
[2017-11-01] MEDS ORDERED: DEXTROSE IV SCH (17:00)
[2017-11-01] MEDS ORDERED: POTASSIUM ACETATE IV SCH (17:00)
[2017-11-01] MEDS ORDERED: [UNRECOGNIZED DRUG - OTHER] IV SCH (17:00)
[2017-11-01] MEDS ORDERED: AMINO ACIDS IV SCH (17:00)
[2017-11-01] MEDS: ENOXAPARIN 40 MG/0.4 ML SQ SCH (17:21)
[2017-11-01] MEDS: FILTER, DISP 1.2 MICRON FOR TPN/PVN IV PRN (18:10)
[2017-11-01 20:13] VITALS: BP 142/67
[2017-11-01] MEDS: TEMAZEPAM 15 MG CAPSULE PO PRN (20:56)
[2017-11-01] MEDS: ATORVASTATIN 40 MG TABLET PO SCH (20:57)
[2017-11-02 01:00] VITALS: BP 113/55
[2017-11-02] MEDS: morphine SULFATE 10 MG/ML, 1ML IV PRN (02:53)
[2017-11-02] MEDS: PIPERACILLIN/TAZO 3.375 GM in SODIUM CHLORIDE 0.9% 50 ML IV SCH ×4 (05:01→23:06)
[2017-11-02 05:15] LABS: ANION GAP 7 mmol/L (5-15); CALCIUM 7.9 mg/dL (8.5-10.1); CHLORIDE 105 mmol/L (98-107); CREATININE 1.34 mg/dL (0.7-1.3)
[2017-11-02 05:26] LABS: MEAN CORPUSCULAR HEMOGLOBIN 29.3 pg (27.5-34.5); MEAN CORPUSCULAR HGB CONC 33.5 g/dL (33.2-36.2); MEAN CORPUSCULAR VOLUME 87.4 fL (81-97); MEAN PLATELET VOLUME 7.9 fL (7.4-10.4); PLATELET COUNT 640 x10^3/uL (130-400); RED CELL DISTRIBUTION WIDTH 13.7 % (9.4-14.8)
[2017-11-02] MEDS: METRONIDAZOLE PMX 500MG/100ML 100 ML IV SCH ×3 (05:41→21:20)
[2017-11-02 06:17] LABS: BASOPHILS # (AUTO) 0.12 x10^3/uL (0-0.1); BASOPHILS % (AUTO) 1 % (0-1); EOSINOPHILS # (AUTO) 0.28 x10^3/uL (0-0.4); EOSINOPHILS % (AUTO) 2 % (1-7); LYMPHOCYTES # (AUTO) 1.02 x10^3/uL (1-3.4); LYMPHOCYTES % (AUTO) 7 % (22-44); MD SCAN; MONOCYTES # (AUTO) 1.56 x10^3/uL (0.2-0.8); MONOCYTES % (AUTO) 10 % (2-9); NEUTROPHILS # (AUTO) 11.98 x10^3/uL (1.8-6.8); NEUTROPHILS % (AUTO) 80 % (42-75)
[2017-11-02 08:37] VITALS: BP 139/69
[2017-11-02] MEDS ORDERED: POLYETHYLENE GLYCOL 17 GM PACKET PO PRN (09:30)
[2017-11-02] MEDS: [UNRECOGNIZED DRUG - REMARK] SQ-INSULIN SCH (10:28)
[2017-11-02] MEDS: ASPIRIN 81 MG TABLET EC PO SCH (10:29)
[2017-11-02] MEDS: FUROSEMIDE 40 MG TABLET PO SCH (10:29)
[2017-11-02] MEDS: PANTOPRAZOLE 40 MG IV IV SCH (10:29)
[2017-11-02] MEDS: POTASSIUM CHLORIDE 20 MEQ PACKET PO SCH ×2 (10:33→21:13)
[2017-11-02] MEDS: ENOXAPARIN 40 MG/0.4 ML SQ SCH (13:40)
[2017-11-02 14:30] VITALS: BP 119/63
[2017-11-02] MEDS: HYDROcodone/APAP 5/325 TABLET PO PRN ×2 (15:13→20:19)
[2017-11-02] MEDS ORDERED: AMINO ACIDS IV SCH (17:00)
[2017-11-02] MEDS ORDERED: POTASSIUM ACETATE IV SCH (17:00)
[2017-11-02] MEDS ORDERED: [UNRECOGNIZED DRUG - OTHER] IV SCH (17:00)
[2017-11-02] MEDS ORDERED: FAT EMULSIONS IV ONE (17:00)
[2017-11-02] MEDS ORDERED: POTASSIUM PHOSPHATE IV SCH (17:00)
[2017-11-02] MEDS ORDERED: DEXTROSE IV SCH (17:00)
[2017-11-02 19:38] VITALS: BP 143/70
[2017-11-02] MEDS: TEMAZEPAM 15 MG CAPSULE PO PRN (21:11)
[2017-11-02] MEDS: ATORVASTATIN 40 MG TABLET PO SCH (21:13)
[2017-11-03] MEDS: HYDROcodone/APAP 5/325 TABLET PO PRN ×3 (00:57→21:09)
[2017-11-03] MEDS: DIPHENHYDRAMINE 25 MG CAPSULE PO PRN (00:57)
[2017-11-03 02:11] VITALS: BP 137/69
[2017-11-03 05:38] LABS: BASOPHILS # (AUTO) 0.05 x10^3/uL (0-0.1); BASOPHILS % (AUTO) 0 % (0-1); EOSINOPHILS % (AUTO) 0 % (1-7); LYMPHOCYTES # (AUTO) 0.76 x10^3/uL (1-3.4); LYMPHOCYTES % (AUTO) 5 % (22-44); MD NO; MEAN CORPUSCULAR HEMOGLOBIN 28.8 pg (27.5-34.5); MEAN CORPUSCULAR HGB CONC 33.3 g/dL (33.2-36.2); MEAN CORPUSCULAR VOLUME 86.6 fL (81-97); MEAN PLATELET VOLUME 7.8 fL (7.4-10.4); MONOCYTES # (AUTO) 1.13 x10^3/uL (0.2-0.8); MONOCYTES % (AUTO) 8 % (2-9); NEUTROPHILS # (AUTO) 12.43 x10^3/uL (1.8-6.8); NEUTROPHILS % (AUTO) 87 % (42-75); PLATELET COUNT 602 x10^3/uL (130-400); RED BLOOD COUNT 3.32 x10^6/uL (4.38-5.82); RED CELL DISTRIBUTION WIDTH 13.6 % (9.4-14.8)
[2017-11-03] MEDS: METRONIDAZOLE PMX 500MG/100ML 100 ML IV SCH ×3 (05:38→21:09)
[2017-11-03] MEDS: PIPERACILLIN/TAZO 3.375 GM in SODIUM CHLORIDE 0.9% 50 ML IV SCH ×4 (05:39→23:04)
[2017-11-03 07:12] VITALS: BP 123/71
[2017-11-03] MEDS: PANTOPRAZOLE 40 MG IV IV SCH (09:02)
[2017-11-03] MEDS: ASPIRIN 81 MG TABLET EC PO SCH (09:02)
[2017-11-03] MEDS: POTASSIUM CHLORIDE 20 MEQ PACKET PO SCH ×2 (09:02→21:08)
[2017-11-03] MEDS: FUROSEMIDE 40 MG TABLET PO SCH (09:02)
[2017-11-03] MEDS: [UNRECOGNIZED DRUG - REMARK] SQ-INSULIN SCH (09:21)
[2017-11-03] MEDS: morphine SULFATE 10 MG/ML, 1ML IV PRN ×2 (12:16→19:24)
[2017-11-03 12:52] VITALS: BP 109/57
[2017-11-03] MEDS: ENOXAPARIN 40 MG/0.4 ML SQ SCH (15:18)
[2017-11-03] MEDS ORDERED: [UNRECOGNIZED DRUG - OTHER] IV SCH (17:00)
[2017-11-03] MEDS ORDERED: FAT EMULSIONS IV ONE (17:00)
[2017-11-03] MEDS ORDERED: DEXTROSE IV SCH (17:00)
[2017-11-03] MEDS ORDERED: POTASSIUM PHOSPHATE IV SCH (17:00)
[2017-11-03] MEDS ORDERED: AMINO ACIDS IV SCH (17:00)
[2017-11-03] MEDS ORDERED: POTASSIUM ACETATE IV SCH (17:00)
[2017-11-03 20:14] VITALS: BP 153/76
[2017-11-03] MEDS ORDERED: ACETAMINOPHEN 500 MG TABLET PO PRN (21:00)
[2017-11-03] MEDS: ATORVASTATIN 40 MG TABLET PO SCH (21:08)
[2017-11-04] MEDS: HYDROcodone/APAP 5/325 TABLET PO PRN (00:44)
[2017-11-04 00:54] VITALS: BP 131/67
[2017-11-04] MEDS: PIPERACILLIN/TAZO 3.375 GM in SODIUM CHLORIDE 0.9% 50 ML IV SCH ×4 (04:59→23:56)
[2017-11-04 05:17] LABS: BASOPHILS # (AUTO) 0.09 x10^3/uL (0-0.1); BASOPHILS % (AUTO) 1 % (0-1); EOSINOPHILS # (AUTO) 0.29 x10^3/uL (0-0.4); EOSINOPHILS % (AUTO) 2 % (1-7); LYMPHOCYTES # (AUTO) 0.97 x10^3/uL (1-3.4); LYMPHOCYTES % (AUTO) 6 % (22-44); MD NO; MEAN CORPUSCULAR HEMOGLOBIN 29.4 pg (27.5-34.5); MEAN CORPUSCULAR HGB CONC 33.8 g/dL (33.2-36.2); MEAN CORPUSCULAR VOLUME 86.9 fL (81-97); MEAN PLATELET VOLUME 7.6 fL (7.4-10.4); MONOCYTES # (AUTO) 1.26 x10^3/uL (0.2-0.8); MONOCYTES % (AUTO) 8 % (2-9); NEUTROPHILS % (AUTO) 83 % (42-75); PLATELET COUNT 539 x10^3/uL (130-400); RED BLOOD COUNT 3.34 x10^6/uL (4.38-5.82)
[2017-11-04 05:26] LABS: CHLORIDE 106 mmol/L (98-107)
[2017-11-04 05:35] LABS: ALANINE AMINOTRANSFERASE 13 U/L (12-78); ALBUMIN 1.6 g/dL (3.4-5.0); ALKALINE PHOSPHATASE 102 U/L (45-117); ANION GAP 4 mmol/L (5-15); BILIRUBIN,TOTAL 0.3 mg/dL (0.2-1.0); PREALBUMIN 13.5 mg/dL (20.0-40.0); TOTAL PROTEIN 7.7 g/dL (6.4-8.2); TRIGLYCERIDES 79 mg/dL (50-200)
[2017-11-04] MEDS: METRONIDAZOLE PMX 500MG/100ML 100 ML IV SCH ×3 (05:43→21:43)
[2017-11-04] MEDS: [UNRECOGNIZED DRUG - REMARK] SQ-INSULIN SCH (07:10)
[2017-11-04] MEDS: PANTOPRAZOLE 40 MG IV IV SCH (07:22)
[2017-11-04 07:28] VITALS: BP 147/70
[2017-11-04] MEDS: ASPIRIN 81 MG TABLET EC PO SCH (09:03)
[2017-11-04] MEDS: POTASSIUM CHLORIDE 20 MEQ PACKET PO SCH ×2 (09:03→21:00)
[2017-11-04] MEDS: FUROSEMIDE 40 MG TABLET PO SCH (09:04)
[2017-11-04] MEDS ORDERED: OMNIPAQUE 350 MG/ML, 100ML BOTTLE ONE (09:38)
[2017-11-04 13:47] VITALS: BP 128/67
[2017-11-04] MEDS: ENOXAPARIN 40 MG/0.4 ML SQ SCH (14:38)
[2017-11-04] MEDS ORDERED: [UNRECOGNIZED DRUG - OTHER] IV SCH (17:00)
[2017-11-04] MEDS ORDERED: FAT EMULSIONS IV ONE (17:00)
[2017-11-04] MEDS ORDERED: AMINO ACIDS IV SCH (17:00)
[2017-11-04] MEDS ORDERED: DEXTROSE IV SCH (17:00)
[2017-11-04] MEDS ORDERED: POTASSIUM PHOSPHATE IV SCH (17:00)
[2017-11-04] MEDS ORDERED: POTASSIUM ACETATE IV SCH (17:00)
[2017-11-04] MEDS: morphine SULFATE 10 MG/ML, 1ML IV PRN ×2 (18:24→21:19)
[2017-11-04 19:38] VITALS: BP 152/76
[2017-11-04] MEDS: TEMAZEPAM 15 MG CAPSULE PO PRN (21:19)
[2017-11-04] MEDS: ATORVASTATIN 40 MG TABLET PO SCH (21:19)
[2017-11-05] MEDS: morphine SULFATE 10 MG/ML, 1ML IV PRN ×5 (01:10→22:51)
[2017-11-05 01:50] VITALS: BP 144/72
[2017-11-05] MEDS: PIPERACILLIN/TAZO 3.375 GM in SODIUM CHLORIDE 0.9% 50 ML IV SCH ×4 (04:30→23:35)
[2017-11-05 04:40] LABS: BASOPHILS # (AUTO) 0.08 x10^3/uL (0-0.1); BASOPHILS % (AUTO) 1 % (0-1); EOSINOPHILS % (AUTO) 0 % (1-7); LYMPHOCYTES # (AUTO) 0.74 x10^3/uL (1-3.4); LYMPHOCYTES % (AUTO) 5 % (22-44); MD NO; MEAN CORPUSCULAR HEMOGLOBIN 29.3 pg (27.5-34.5); MEAN CORPUSCULAR HGB CONC 33.8 g/dL (33.2-36.2); MEAN CORPUSCULAR VOLUME 86.6 fL (81-97); MEAN PLATELET VOLUME 7.5 fL (7.4-10.4); MONOCYTES # (AUTO) 1.01 x10^3/uL (0.2-0.8); MONOCYTES % (AUTO) 7 % (2-9); NEUTROPHILS % (AUTO) 88 % (42-75); PLATELET COUNT 495 x10^3/uL (130-400); RED BLOOD COUNT 3.22 x10^6/uL (4.38-5.82); RED CELL DISTRIBUTION WIDTH 13.9 % (9.4-14.8)
[2017-11-05] MEDS: METRONIDAZOLE PMX 500MG/100ML 100 ML IV SCH ×3 (06:26→22:11)
[2017-11-05 07:44] VITALS: BP 124/63
[2017-11-05] MEDS: FUROSEMIDE 40 MG TABLET PO SCH (09:00)
[2017-11-05] MEDS: PANTOPRAZOLE 40 MG IV IV SCH (09:00)
[2017-11-05] MEDS: POTASSIUM CHLORIDE 20 MEQ PACKET PO SCH ×2 (09:00→20:19)
[2017-11-05] MEDS: ASPIRIN 81 MG TABLET EC PO SCH (09:00)
[2017-11-05] MEDS: [UNRECOGNIZED DRUG - REMARK] SQ-INSULIN SCH (09:00)
[2017-11-05] MEDS: ENOXAPARIN 40 MG/0.4 ML SQ SCH (11:26)
[2017-11-05] MEDS ORDERED: LIDOCAINE 1%, 10ML ONE (12:35)
[2017-11-05] MEDS ORDERED: FENTANYL PF 100 MCG/2ML ONE (13:22)
[2017-11-05] MEDS ORDERED: NALOXONE 1 MG/ML, 2ML ONE (13:23)
[2017-11-05 14:13] VITALS: BP 133/79
[2017-11-05] MEDS ORDERED: DEXTROSE 70% IV SCH (17:00)
[2017-11-05] MEDS ORDERED: FAT EMULSIONS IV SCH (17:00)
[2017-11-05] MEDS ORDERED: [UNRECOGNIZED DRUG - OTHER] IV SCH (17:00)
[2017-11-05] MEDS ORDERED: AMINO ACID 10% IV SCH (17:00)
[2017-11-05] MEDS: FILTER, DISP 1.2 MICRON FOR TPN/PVN IV PRN (17:46)
[2017-11-05 19:22] VITALS: BP 139/84
[2017-11-05] MEDS: ATORVASTATIN 40 MG TABLET PO SCH (20:18)
[2017-11-06] MEDS: DIPHENHYDRAMINE 25 MG CAPSULE PO PRN ×2 (00:20→21:43)
[2017-11-06 01:22] VITALS: BP 144/87
[2017-11-06] MEDS: HYDROcodone/APAP 5/325 TABLET PO PRN ×3 (02:47→20:15)
[2017-11-06] MEDS: PIPERACILLIN/TAZO 3.375 GM in SODIUM CHLORIDE 0.9% 50 ML IV SCH ×4 (05:26→23:06)
[2017-11-06 05:37] LABS: BASOPHILS # (AUTO) 0.09 x10^3/uL (0-0.1); BASOPHILS % (AUTO) 1 % (0-1); EOSINOPHILS # (AUTO) 0.17 x10^3/uL (0-0.4); EOSINOPHILS % (AUTO) 1 % (1-7); LYMPHOCYTES # (AUTO) 0.59 x10^3/uL (1-3.4); LYMPHOCYTES % (AUTO) 5 % (22-44); MD NO; MEAN CORPUSCULAR HEMOGLOBIN 28.9 pg (27.5-34.5); MEAN CORPUSCULAR HGB CONC 33.5 g/dL (33.2-36.2); MEAN CORPUSCULAR VOLUME 86.3 fL (81-97); MEAN PLATELET VOLUME 7.7 fL (7.4-10.4); MONOCYTES # (AUTO) 0.88 x10^3/uL (0.2-0.8); MONOCYTES % (AUTO) 7 % (2-9); NEUTROPHILS # (AUTO) 11.27 x10^3/uL (1.8-6.8); NEUTROPHILS % (AUTO) 87 % (42-75); PLATELET COUNT 453 x10^3/uL (130-400); RED BLOOD COUNT 3.11 x10^6/uL (4.38-5.82); RED CELL DISTRIBUTION WIDTH 13.8 % (9.4-14.8)
[2017-11-06 05:39] LABS: ANION GAP 7 mmol/L (5-15); CALCIUM 7.9 mg/dL (8.5-10.1); CHLORIDE 108 mmol/L (98-107)
[2017-11-06 05:41] LABS: CREATININE 1.02 mg/dL (0.7-1.3)
[2017-11-06] MEDS: METRONIDAZOLE PMX 500MG/100ML 100 ML IV SCH ×2 (06:18→15:07)
[2017-11-06 07:00] VITALS: BP 155/79
[2017-11-06] MEDS: POTASSIUM CHLORIDE 20 MEQ PACKET PO SCH ×3 (09:00→20:17)
[2017-11-06] MEDS: PANTOPRAZOLE 40 MG IV IV SCH (09:34)
[2017-11-06] MEDS: ASPIRIN 81 MG TABLET EC PO SCH (09:34)
[2017-11-06] MEDS: FUROSEMIDE 40 MG TABLET PO SCH (09:34)
[2017-11-06] MEDS: [UNRECOGNIZED DRUG - REMARK] SQ-INSULIN SCH (09:46)
[2017-11-06] MEDS: FLUCONAZOLE 200 MG TABLET PO SCH (11:35)
[2017-11-06] MEDS: ONDANSETRON 2MG/ML, 2ML IV PRN (13:21)
[2017-11-06 14:36] VITALS: BP 126/70
[2017-11-06] MEDS: ENOXAPARIN 40 MG/0.4 ML SQ SCH (15:07)
[2017-11-06] MEDS ORDERED: FAT EMULSIONS IV SCH (17:00)
[2017-11-06] MEDS ORDERED: [UNRECOGNIZED DRUG - OTHER] IV SCH (17:00)
[2017-11-06] MEDS ORDERED: FILTER, DISP 1.2 MICRON FOR TPN/PVN IV PRN (17:00)
[2017-11-06] MEDS ORDERED: AMINO ACID 10% IV SCH (17:00)
[2017-11-06] MEDS ORDERED: DEXTROSE 70% IV SCH (17:00)
[2017-11-06 19:33] VITALS: BP 132/76
[2017-11-06] MEDS: ATORVASTATIN 40 MG TABLET PO SCH (20:14)
[2017-11-06] MEDS: metroNIDAZOLE 500 MG TABLET PO SCH (20:14)
[2017-11-07 01:18] VITALS: BP 127/72
[2017-11-07 04:12] LABS: BASOPHILS # (AUTO) 0.03 x10^3/uL (0-0.1); BASOPHILS % (AUTO) 0 % (0-1); EOSINOPHILS # (AUTO) 0.14 x10^3/uL (0-0.4); EOSINOPHILS % (AUTO) 1 % (1-7); LYMPHOCYTES # (AUTO) 0.72 x10^3/uL (1-3.4); LYMPHOCYTES % (AUTO) 5 % (22-44); MD NO; MEAN CORPUSCULAR HEMOGLOBIN 28.8 pg (27.5-34.5); MEAN CORPUSCULAR HGB CONC 33.4 g/dL (33.2-36.2); MEAN CORPUSCULAR VOLUME 86.2 fL (81-97); MEAN PLATELET VOLUME 7.6 fL (7.4-10.4); MONOCYTES # (AUTO) 0.87 x10^3/uL (0.2-0.8); MONOCYTES % (AUTO) 6 % (2-9); NEUTROPHILS # (AUTO) 13.18 x10^3/uL (1.8-6.8); NEUTROPHILS % (AUTO) 88 % (42-75); PLATELET COUNT 437 x10^3/uL (130-400); RED BLOOD COUNT 3.15 x10^6/uL (4.38-5.82); RED CELL DISTRIBUTION WIDTH 14.2 % (9.4-14.8)
[2017-11-07] MEDS: PIPERACILLIN/TAZO 3.375 GM in SODIUM CHLORIDE 0.9% 50 ML IV SCH ×4 (05:49→23:34)
[2017-11-07 07:25] VITALS: BP 147/70
[2017-11-07] MEDS: POTASSIUM CHLORIDE 20 MEQ PACKET PO SCH ×2 (09:00→20:16)
[2017-11-07] MEDS: ASPIRIN 81 MG TABLET EC PO SCH (09:02)
[2017-11-07] MEDS: FUROSEMIDE 40 MG TABLET PO SCH (09:03)
[2017-11-07] MEDS: metroNIDAZOLE 500 MG TABLET PO SCH ×3 (09:03→20:16)
[2017-11-07] MEDS: FLUOXETINE 20 MG CAPSULE PO SCH (09:03)
[2017-11-07] MEDS: PANTOPROZOLE 40MG TABLET PO SCH (09:03)
[2017-11-07] MEDS: [UNRECOGNIZED DRUG - REMARK] SQ-INSULIN SCH (09:13)
[2017-11-07] MEDS: LINEZOLID 600 MG TABLET PO SCH ×3 (11:40→20:56)
[2017-11-07] MEDS: FLUCONAZOLE 200 MG TABLET PO SCH (11:44)
[2017-11-07 13:48] VITALS: BP 132/76
[2017-11-07] MEDS: ENOXAPARIN 40 MG/0.4 ML SQ SCH (14:46)
[2017-11-07] MEDS ORDERED: FAT EMULSIONS IV SCH (17:00)
[2017-11-07] MEDS ORDERED: FILTER, DISP 1.2 MICRON FOR TPN/PVN IV PRN (17:00)
[2017-11-07] MEDS ORDERED: DEXTROSE 70% IV SCH (17:00)
[2017-11-07] MEDS ORDERED: [UNRECOGNIZED DRUG - OTHER] IV SCH (17:00)
[2017-11-07] MEDS ORDERED: AMINO ACID 10% IV SCH (17:00)
[2017-11-07] MEDS: ONDANSETRON 2MG/ML, 2ML IV PRN (17:48)
[2017-11-07 19:24] VITALS: BP 143/75
[2017-11-07] MEDS: ATORVASTATIN 40 MG TABLET PO SCH (20:16)
[2017-11-07] MEDS: HYDROcodone/APAP 5/325 TABLET PO PRN (21:02)
[2017-11-08 01:57] VITALS: BP 143/75
[2017-11-08] MEDS: ONDANSETRON 2MG/ML, 2ML IV PRN ×3 (01:57→18:38)
[2017-11-08] MEDS: TEMAZEPAM 15 MG CAPSULE PO PRN ×2 (02:08→22:56)
[2017-11-08] MEDS: PIPERACILLIN/TAZO 3.375 GM in SODIUM CHLORIDE 0.9% 50 ML IV SCH ×4 (05:08→22:52)
[2017-11-08 05:36] LABS: BASOPHILS # (AUTO) 0.06 x10^3/uL (0-0.1); BASOPHILS % (AUTO) 0 % (0-1); EOSINOPHILS # (AUTO) 0.32 x10^3/uL (0-0.4); EOSINOPHILS % (AUTO) 2 % (1-7); LYMPHOCYTES # (AUTO) 0.67 x10^3/uL (1-3.4); LYMPHOCYTES % (AUTO) 5 % (22-44); MD NO; MEAN CORPUSCULAR HGB CONC 33.5 g/dL (33.2-36.2); MEAN CORPUSCULAR VOLUME 86.5 fL (81-97); MONOCYTES # (AUTO) 0.74 x10^3/uL (0.2-0.8); MONOCYTES % (AUTO) 5 % (2-9); NEUTROPHILS # (AUTO) 12.35 x10^3/uL (1.8-6.8); NEUTROPHILS % (AUTO) 87 % (42-75); PLATELET COUNT 429 x10^3/uL (130-400); RED BLOOD COUNT 3.11 x10^6/uL (4.38-5.82); RED CELL DISTRIBUTION WIDTH 13.9 % (9.4-14.8)
[2017-11-08 05:47] LABS: CHLORIDE 109 mmol/L (98-107)
[2017-11-08 05:55] LABS: ANION GAP 9 mmol/L (5-15); CREATININE 1.13 mg/dL (0.7-1.3)
[2017-11-08 08:09] VITALS: BP 143/78
[2017-11-08] MEDS: [UNRECOGNIZED DRUG - REMARK] SQ-INSULIN SCH (08:18)
[2017-11-08] MEDS: POTASSIUM CHLORIDE 20 MEQ PACKET PO SCH ×2 (08:18→20:45)
[2017-11-08] MEDS: FUROSEMIDE 40 MG TABLET PO SCH (08:20)
[2017-11-08] MEDS: ASPIRIN 81 MG TABLET EC PO SCH (08:20)
[2017-11-08] MEDS: LINEZOLID 600 MG TABLET PO SCH ×2 (08:20→20:45)
[2017-11-08] MEDS: FLUOXETINE 20 MG CAPSULE PO SCH (08:20)
[2017-11-08] MEDS: metroNIDAZOLE 500 MG TABLET PO SCH ×3 (08:20→20:45)
[2017-11-08] MEDS: PANTOPROZOLE 40MG TABLET PO SCH (08:21)
[2017-11-08] MEDS: FLUCONAZOLE 200 MG TABLET PO SCH (11:39)
[2017-11-08 14:05] VITALS: BP 153/91
[2017-11-08] MEDS ORDERED: AMINO ACID 10% IV SCH ×2 (17:00)
[2017-11-08] MEDS ORDERED: FAT EMULSIONS IV SCH ×2 (17:00)
[2017-11-08] MEDS ORDERED: [UNRECOGNIZED DRUG - OTHER] IV SCH ×2 (17:00)
[2017-11-08] MEDS ORDERED: DEXTROSE 70% IV SCH ×2 (17:00)
[2017-11-08] MEDS: FILTER, DISP 1.2 MICRON FOR TPN/PVN IV PRN (17:29)
[2017-11-08] MEDS: ENOXAPARIN 40 MG/0.4 ML SQ SCH (17:31)
[2017-11-08 19:08] VITALS: BP 138/80
[2017-11-08] MEDS: ATORVASTATIN 40 MG TABLET PO SCH (20:45)
[2017-11-09] MEDS: ONDANSETRON 2MG/ML, 2ML IV PRN ×2 (01:31→14:31)
[2017-11-09 01:38] VITALS: BP 141/86
[2017-11-09] MEDS: PIPERACILLIN/TAZO 3.375 GM in SODIUM CHLORIDE 0.9% 50 ML IV SCH ×2 (05:51→10:57)
[2017-11-09 06:21] LABS: BASOPHILS # (AUTO) 0.09 x10^3/uL (0-0.1); BASOPHILS % (AUTO) 1 % (0-1); EOSINOPHILS # (AUTO) 0.21 x10^3/uL (0-0.4); EOSINOPHILS % (AUTO) 1 % (1-7); LYMPHOCYTES # (AUTO) 0.96 x10^3/uL (1-3.4); LYMPHOCYTES % (AUTO) 6 % (22-44); MD NO; MEAN CORPUSCULAR HEMOGLOBIN 28.6 pg (27.5-34.5); MEAN CORPUSCULAR HGB CONC 33.1 g/dL (33.2-36.2); MEAN CORPUSCULAR VOLUME 86.5 fL (81-97); MEAN PLATELET VOLUME 7.8 fL (7.4-10.4); MONOCYTES # (AUTO) 0.96 x10^3/uL (0.2-0.8); MONOCYTES % (AUTO) 6 % (2-9); NEUTROPHILS # (AUTO) 12.86 x10^3/uL (1.8-6.8); NEUTROPHILS % (AUTO) 85 % (42-75); PLATELET COUNT 466 x10^3/uL (130-400); RED BLOOD COUNT 3.17 x10^6/uL (4.38-5.82); RED CELL DISTRIBUTION WIDTH 14.1 % (9.4-14.8)
[2017-11-09 06:54] VITALS: BP 137/72
[2017-11-09] MEDS: FLUOXETINE 20 MG CAPSULE PO SCH (09:44)
[2017-11-09] MEDS: ASPIRIN 81 MG TABLET EC PO SCH (09:44)
[2017-11-09] MEDS: metroNIDAZOLE 500 MG TABLET PO SCH ×3 (09:45→20:03)
[2017-11-09] MEDS: POTASSIUM CHLORIDE 20 MEQ PACKET PO SCH ×2 (09:45→20:03)
[2017-11-09] MEDS: FUROSEMIDE 40 MG TABLET PO SCH (09:45)
[2017-11-09] MEDS: LINEZOLID 600 MG TABLET PO SCH (09:45)
[2017-11-09] MEDS: PANTOPROZOLE 40MG TABLET PO SCH (09:45)
[2017-11-09] MEDS: FLUCONAZOLE 200 MG TABLET PO SCH (10:57)
[2017-11-09] MEDS: [UNRECOGNIZED DRUG - REMARK] SQ-INSULIN SCH (11:11)
[2017-11-09 12:03] VITALS: BP 125/70
[2017-11-09] MEDS ORDERED: ONDANSETRON ODT 4 MG PO PRN (15:30)
[2017-11-09] MEDS ORDERED: PROMETHAZINE 25 MG/ML, 1ML IM PRN (15:30)
[2017-11-09] MEDS ORDERED: AMINO ACID 10% IV SCH (17:00)
[2017-11-09] MEDS ORDERED: FAT EMULSIONS IV SCH (17:00)
[2017-11-09] MEDS ORDERED: [UNRECOGNIZED DRUG - OTHER] IV SCH (17:00)
[2017-11-09] MEDS ORDERED: DEXTROSE 70% IV SCH (17:00)
[2017-11-09] MEDS: ENOXAPARIN 40 MG/0.4 ML SQ SCH (17:15)
[2017-11-09] MEDS: PIPERACILLIN/TAZO/PMX 3.375GM 50 ML IV SCH ×2 (17:16→22:38)
[2017-11-09 19:48] VITALS: BP 142/80
[2017-11-09] MEDS: ATORVASTATIN 40 MG TABLET PO SCH (20:03)
[2017-11-09] MEDS: TEMAZEPAM 15 MG CAPSULE PO PRN ×2 (21:30→23:02)
[2017-11-10 01:48] VITALS: BP 125/74
[2017-11-10] MEDS: PIPERACILLIN/TAZO/PMX 3.375GM 50 ML IV SCH ×4 (04:52→21:48)
[2017-11-10 05:16] LABS: BASOPHILS # (AUTO) 0.02 x10^3/uL (0-0.1); BASOPHILS % (AUTO) 0 % (0-1); EOSINOPHILS % (AUTO) 0 % (1-7); LYMPHOCYTES # (AUTO) 0.88 x10^3/uL (1-3.4); LYMPHOCYTES % (AUTO) 6 % (22-44); MD NO; MEAN CORPUSCULAR HEMOGLOBIN 28.6 pg (27.5-34.5); MEAN CORPUSCULAR HGB CONC 33.4 g/dL (33.2-36.2); MEAN CORPUSCULAR VOLUME 85.6 fL (81-97); MEAN PLATELET VOLUME 7.8 fL (7.4-10.4); MONOCYTES # (AUTO) 0.93 x10^3/uL (0.2-0.8); MONOCYTES % (AUTO) 6 % (2-9); NEUTROPHILS # (AUTO) 14.23 x10^3/uL (1.8-6.8); NEUTROPHILS % (AUTO) 89 % (42-75); PLATELET COUNT 448 x10^3/uL (130-400); RED BLOOD COUNT 3.15 x10^6/uL (4.38-5.82); RED CELL DISTRIBUTION WIDTH 14.1 % (9.4-14.8)
[2017-11-10 06:49] VITALS: BP 130/67
[2017-11-10] MEDS: ASPIRIN 81 MG TABLET EC PO SCH (08:40)
[2017-11-10] MEDS: metroNIDAZOLE 500 MG TABLET PO SCH ×3 (08:41→21:00)
[2017-11-10] MEDS: [UNRECOGNIZED DRUG - REMARK] SQ-INSULIN SCH (08:41)
[2017-11-10] MEDS: PANTOPROZOLE 40MG TABLET PO SCH (08:41)
[2017-11-10] MEDS: FLUOXETINE 20 MG CAPSULE PO SCH (08:41)
[2017-11-10] MEDS: FUROSEMIDE 40 MG TABLET PO SCH (08:41)
[2017-11-10] MEDS: POTASSIUM CHLORIDE 20 MEQ PACKET PO SCH ×2 (08:41→21:00)
[2017-11-10] MEDS: MEGESTROL ACETATE 400 MG/10 ML ML PO SCH (09:22)
[2017-11-10 09:49] LABS: ANION GAP 8 mmol/L (5-15); CALCIUM 7.9 mg/dL (8.5-10.1); CHLORIDE 107 mmol/L (98-107); CREATININE 0.98 mg/dL (0.7-1.3)
[2017-11-10 14:32] VITALS: BP 125/71
[2017-11-10] MEDS: ENOXAPARIN 40 MG/0.4 ML SQ SCH (16:07)
[2017-11-10] MEDS: ONDANSETRON 2MG/ML, 2ML IV PRN (16:07)
[2017-11-10] MEDS ORDERED: DEXTROSE 70% IV SCH (17:00)
[2017-11-10] MEDS ORDERED: AMINO ACID 10% IV SCH (17:00)
[2017-11-10] MEDS ORDERED: [UNRECOGNIZED DRUG - OTHER] IV SCH (17:00)
[2017-11-10] MEDS ORDERED: FAT EMULSIONS IV SCH (17:00)
[2017-11-10 19:48] VITALS: BP 118/68
[2017-11-10] MEDS: ATORVASTATIN 40 MG TABLET PO SCH (21:00)
[2017-11-10] MEDS: TEMAZEPAM 15 MG CAPSULE PO PRN (21:49)
[2017-11-11] MEDS: TEMAZEPAM 15 MG CAPSULE PO PRN ×2 (02:14→20:33)
[2017-11-11 02:17] VITALS: BP 150/82
[2017-11-11] MEDS: PIPERACILLIN/TAZO/PMX 3.375GM 50 ML IV SCH ×4 (04:18→22:49)
[2017-11-11 04:39] LABS: ALANINE AMINOTRANSFERASE 15 U/L (12-78); ALBUMIN 1.5 g/dL (3.4-5.0); ANION GAP 9 mmol/L (5-15); CALCIUM 8.2 mg/dL (8.5-10.1); CHLORIDE 107 mmol/L (98-107); CREATININE 0.98 mg/dL (0.7-1.3)
[2017-11-11 04:44] LABS: ALKALINE PHOSPHATASE 90 U/L (45-117); BILIRUBIN,TOTAL 0.3 mg/dL (0.2-1.0); PREALBUMIN 14.5 mg/dL (20.0-40.0); TOTAL PROTEIN 8.4 g/dL (6.4-8.2); TRIGLYCERIDES 104 mg/dL (50-200)
[2017-11-11 07:23] LABS: BASOPHILS # (AUTO) 0.01 x10^3/uL (0-0.1); BASOPHILS % (AUTO) 0 % (0-1); EOSINOPHILS % (AUTO) 3 % (1-7); LYMPHOCYTES # (AUTO) 0.84 x10^3/uL (1-3.4); LYMPHOCYTES % (AUTO) 6 % (22-44); MD NO; MEAN CORPUSCULAR HEMOGLOBIN 28.4 pg (27.5-34.5); MEAN CORPUSCULAR HGB CONC 33.2 g/dL (33.2-36.2); MEAN CORPUSCULAR VOLUME 85.6 fL (81-97); MEAN PLATELET VOLUME 7.4 fL (7.4-10.4); MONOCYTES # (AUTO) 0.99 x10^3/uL (0.2-0.8); MONOCYTES % (AUTO) 7 % (2-9); NEUTROPHILS # (AUTO) 12.75 x10^3/uL (1.8-6.8); NEUTROPHILS % (AUTO) 85 % (42-75); PLATELET COUNT 465 x10^3/uL (130-400); RED CELL DISTRIBUTION WIDTH 14.1 % (9.4-14.8)
[2017-11-11] MEDS: [UNRECOGNIZED DRUG - REMARK] SQ-INSULIN SCH (07:58)
[2017-11-11 08:07] VITALS: BP 139/78
[2017-11-11] MEDS: POTASSIUM CHLORIDE 20 MEQ PACKET PO SCH ×2 (08:24→20:32)
[2017-11-11] MEDS: PANTOPROZOLE 40MG TABLET PO SCH (08:26)
[2017-11-11] MEDS: FUROSEMIDE 40 MG TABLET PO SCH (08:26)
[2017-11-11] MEDS: ASPIRIN 81 MG TABLET EC PO SCH (08:26)
[2017-11-11] MEDS: metroNIDAZOLE 500 MG TABLET PO SCH ×3 (08:26→20:32)
[2017-11-11] MEDS: FLUOXETINE 20 MG CAPSULE PO SCH (08:26)
[2017-11-11] MEDS: MEGESTROL ACETATE 400 MG/10 ML ML PO SCH (11:23)
[2017-11-11] MEDS: ONDANSETRON 2MG/ML, 2ML IV PRN ×2 (12:12→21:13)
[2017-11-11 13:32] VITALS: BP 145/75
[2017-11-11] MEDS: ENOXAPARIN 40 MG/0.4 ML SQ SCH (16:29)
[2017-11-11] MEDS ORDERED: [UNRECOGNIZED DRUG - OTHER] IV SCH (17:00)
[2017-11-11] MEDS ORDERED: FAT EMULSIONS IV SCH (17:00)
[2017-11-11] MEDS ORDERED: DEXTROSE 70% IV SCH (17:00)
[2017-11-11] MEDS ORDERED: AMINO ACID 10% IV SCH (17:00)
[2017-11-11] MEDS: ATORVASTATIN 40 MG TABLET PO SCH (20:32)
[2017-11-11 21:03] VITALS: BP 149/78
[2017-11-12 01:38] VITALS: BP 142/71
[2017-11-12] MEDS: PIPERACILLIN/TAZO/PMX 3.375GM 50 ML IV SCH ×4 (04:36→23:01)
[2017-11-12 05:30] LABS: BASOPHILS # (AUTO) 0.04 x10^3/uL (0-0.1); BASOPHILS % (AUTO) 0 % (0-1); EOSINOPHILS % (AUTO) 0 % (1-7); LYMPHOCYTES # (AUTO) 0.76 x10^3/uL (1-3.4); LYMPHOCYTES % (AUTO) 5 % (22-44); MD NO; MEAN CORPUSCULAR HEMOGLOBIN 28.4 pg (27.5-34.5); MEAN CORPUSCULAR HGB CONC 33.4 g/dL (33.2-36.2); MEAN CORPUSCULAR VOLUME 85.1 fL (81-97); MEAN PLATELET VOLUME 7.7 fL (7.4-10.4); MONOCYTES # (AUTO) 1.11 x10^3/uL (0.2-0.8); MONOCYTES % (AUTO) 7 % (2-9); NEUTROPHILS # (AUTO) 14.78 x10^3/uL (1.8-6.8); NEUTROPHILS % (AUTO) 89 % (42-75); PLATELET COUNT 464 x10^3/uL (130-400); RED BLOOD COUNT 3.43 x10^6/uL (4.38-5.82); RED CELL DISTRIBUTION WIDTH 14.2 % (9.4-14.8)
[2017-11-12 05:40] LABS: ANION GAP 6 mmol/L (5-15); CALCIUM 8.6 mg/dL (8.5-10.1); CHLORIDE 107 mmol/L (98-107); CREATININE 0.91 mg/dL (0.7-1.3)
[2017-11-12] MEDS: [UNRECOGNIZED DRUG - REMARK] SQ-INSULIN SCH (09:01)
[2017-11-12] MEDS: POTASSIUM CHLORIDE 20 MEQ PACKET PO SCH ×2 (09:01→20:47)
[2017-11-12] MEDS: metroNIDAZOLE 500 MG TABLET PO SCH (09:46)
[2017-11-12] MEDS: ASPIRIN 81 MG TABLET EC PO SCH (09:46)
[2017-11-12] MEDS: FUROSEMIDE 40 MG TABLET PO SCH (09:46)
[2017-11-12] MEDS: PANTOPROZOLE 40MG TABLET PO SCH (09:47)
[2017-11-12] MEDS: ONDANSETRON 2MG/ML, 2ML IV PRN ×2 (09:47→12:12)
[2017-11-12] MEDS: FLUOXETINE 20 MG CAPSULE PO SCH (09:47)
[2017-11-12] MEDS: MEGESTROL ACETATE 400 MG/10 ML ML PO SCH (12:12)
[2017-11-12 12:33] VITALS: BP 159/77
[2017-11-12] MEDS ORDERED: DEXTROSE 70% IV SCH (17:00)
[2017-11-12] MEDS ORDERED: [UNRECOGNIZED DRUG - OTHER] IV SCH (17:00)
[2017-11-12] MEDS ORDERED: AMINO ACID 10% IV SCH (17:00)
[2017-11-12] MEDS ORDERED: FAT EMULSIONS IV SCH (17:00)
[2017-11-12] MEDS: ENOXAPARIN 40 MG/0.4 ML SQ SCH (17:34)
[2017-11-12] MEDS: METRONIDAZOLE PMX 500MG/100ML 100 ML IV SCH (18:37)
[2017-11-12 19:34] VITALS: BP 153/74
[2017-11-12] MEDS: LORazepam 2 MG/ML, 1ML IVPush PRN (20:47)
[2017-11-12] MEDS: ATORVASTATIN 40 MG TABLET PO SCH (20:47)
[2017-11-12] MEDS: HYDROcodone/APAP 5/325 TABLET PO PRN (23:01)
[2017-11-13] MEDS: METRONIDAZOLE PMX 500MG/100ML 100 ML IV SCH ×3 (00:53→16:47)
[2017-11-13] MEDS: TEMAZEPAM 15 MG CAPSULE PO PRN ×2 (00:56→20:50)
[2017-11-13 02:38] VITALS: BP 147/68
[2017-11-13] MEDS: PIPERACILLIN/TAZO/PMX 3.375GM 50 ML IV SCH ×4 (04:16→23:33)
[2017-11-13 04:47] LABS: BASOPHILS % (AUTO) 0 % (0-1); EOSINOPHILS % (AUTO) 0 % (1-7); LYMPHOCYTES # (AUTO) 1.04 x10^3/uL (1-3.4); LYMPHOCYTES % (AUTO) 6 % (22-44); MD NO; MEAN CORPUSCULAR HEMOGLOBIN 28.9 pg (27.5-34.5); MEAN CORPUSCULAR HGB CONC 34.1 g/dL (33.2-36.2); MEAN CORPUSCULAR VOLUME 84.8 fL (81-97); MEAN PLATELET VOLUME 7.4 fL (7.4-10.4); MONOCYTES # (AUTO) 1.06 x10^3/uL (0.2-0.8); MONOCYTES % (AUTO) 7 % (2-9); NEUTROPHILS # (AUTO) 14.26 x10^3/uL (1.8-6.8); NEUTROPHILS % (AUTO) 87 % (42-75); PLATELET COUNT 485 x10^3/uL (130-400); RED BLOOD COUNT 3.35 x10^6/uL (4.38-5.82)
[2017-11-13 04:58] LABS: ANION GAP 8 mmol/L (5-15); CALCIUM 8.4 mg/dL (8.5-10.1); CHLORIDE 108 mmol/L (98-107)
[2017-11-13 05:01] LABS: CREATININE 0.88 mg/dL (0.7-1.3)
[2017-11-13 07:34] VITALS: BP 147/77
[2017-11-13] MEDS: [UNRECOGNIZED DRUG - REMARK] SQ-INSULIN SCH (08:00)
[2017-11-13] MEDS: POTASSIUM CHLORIDE 20 MEQ PACKET PO SCH ×2 (08:00→20:50)
[2017-11-13] MEDS: FUROSEMIDE 40 MG TABLET PO SCH (08:23)
[2017-11-13] MEDS: ASPIRIN 81 MG TABLET EC PO SCH (09:50)
[2017-11-13] MEDS: ONDANSETRON 2MG/ML, 2ML IV PRN ×3 (09:50→23:40)
[2017-11-13] MEDS: FLUOXETINE 20 MG CAPSULE PO SCH (09:50)
[2017-11-13] MEDS: PANTOPROZOLE 40MG TABLET PO SCH (09:50)
[2017-11-13] MEDS: MEGESTROL ACETATE 400 MG/10 ML ML PO SCH (11:32)
[2017-11-13 13:34] VITALS: BP 132/75
[2017-11-13] MEDS: ENOXAPARIN 40 MG/0.4 ML SQ SCH (16:47)
[2017-11-13] MEDS ORDERED: FAT EMULSIONS IV SCH (17:00)
[2017-11-13] MEDS ORDERED: [UNRECOGNIZED DRUG - OTHER] IV SCH (17:00)
[2017-11-13] MEDS ORDERED: DEXTROSE 70% IV SCH (17:00)
[2017-11-13] MEDS ORDERED: AMINO ACID 10% IV SCH (17:00)
[2017-11-13 19:05] VITALS: BP 159/89
[2017-11-13] MEDS: ATORVASTATIN 40 MG TABLET PO SCH (20:50)
[2017-11-14] MEDS: METRONIDAZOLE PMX 500MG/100ML 100 ML IV SCH ×4 (00:15→23:46)
[2017-11-14] MEDS: TEMAZEPAM 15 MG CAPSULE PO PRN (00:39)
[2017-11-14 02:54] VITALS: BP 132/79
[2017-11-14] MEDS: TRAZODONE 50MG TABLET PO PRN ×2 (03:01→22:50)
[2017-11-14] MEDS: HYDROcodone/APAP 5/325 TABLET PO PRN ×3 (03:05→20:28)
[2017-11-14] MEDS: PIPERACILLIN/TAZO/PMX 3.375GM 50 ML IV SCH ×3 (06:06→20:07)
[2017-11-14 06:32] VITALS: BP 143/83
[2017-11-14 06:47] LABS: MEAN CORPUSCULAR HEMOGLOBIN 27.9 pg (27.5-34.5); MEAN CORPUSCULAR HGB CONC 32.9 g/dL (33.2-36.2); MEAN CORPUSCULAR VOLUME 84.8 fL (81-97); MEAN PLATELET VOLUME 7.7 fL (7.4-10.4); PLATELET COUNT 492 x10^3/uL (130-400); RED BLOOD COUNT 3.53 x10^6/uL (4.38-5.82); RED CELL DISTRIBUTION WIDTH 14.3 % (9.4-14.8)
[2017-11-14 06:55] LABS: ANION GAP 7 mmol/L (5-15); CALCIUM 8.2 mg/dL (8.5-10.1); CHLORIDE 108 mmol/L (98-107)
[2017-11-14 06:56] LABS: CREATININE 0.86 mg/dL (0.7-1.3)
[2017-11-14 08:33] LABS: BASOPHILS # (AUTO) 0.04 x10^3/uL (0-0.1); BASOPHILS % (AUTO) 0 % (0-1); EOSINOPHILS % (AUTO) 0 % (1-7); LYMPHOCYTES # (AUTO) 0.95 x10^3/uL (1-3.4); LYMPHOCYTES % (AUTO) 6 % (22-44); MD SCAN; MONOCYTES # (AUTO) 1.02 x10^3/uL (0.2-0.8); MONOCYTES % (AUTO) 6 % (2-9); NEUTROPHILS # (AUTO) 15.17 x10^3/uL (1.8-6.8); NEUTROPHILS % (AUTO) 88 % (42-75)
[2017-11-14] MEDS: POTASSIUM CHLORIDE 20 MEQ PACKET PO SCH (09:00)
[2017-11-14] MEDS: FUROSEMIDE 40 MG TABLET PO SCH (09:00)
[2017-11-14] MEDS: MEGESTROL ACETATE 400 MG/10 ML ML PO SCH (09:00)
[2017-11-14] MEDS: ASPIRIN 81 MG TABLET EC PO SCH (09:00)
[2017-11-14] MEDS: PANTOPROZOLE 40MG TABLET PO SCH (09:00)
[2017-11-14] MEDS: FLUOXETINE 20 MG CAPSULE PO SCH (09:00)
[2017-11-14] MEDS: ONDANSETRON 2MG/ML, 2ML IV PRN ×3 (09:22→21:37)
[2017-11-14] MEDS: [UNRECOGNIZED DRUG - REMARK] SQ-INSULIN SCH (11:59)
[2017-11-14 12:15] VITALS: BP 157/88
[2017-11-14] MEDS: PROMETHAZINE 25 MG/ML, 1ML IM PRN (12:18)
[2017-11-14] MEDS ORDERED: AMINO ACID 10% IV SCH (17:00)
[2017-11-14] MEDS ORDERED: DEXTROSE 70% IV SCH (17:00)
[2017-11-14] MEDS ORDERED: FAT EMULSIONS IV SCH (17:00)
[2017-11-14] MEDS ORDERED: [UNRECOGNIZED DRUG - OTHER] IV SCH (17:00)
[2017-11-14] MEDS ORDERED: METOCLOPRAMIDE 5 MG/ML, 2ML IV SCH (17:30)
[2017-11-14] MEDS ORDERED: PROMETHAZINE 25 MG SUPP PR PRN (17:30)
[2017-11-14] MEDS: FILTER, DISP 1.2 MICRON FOR TPN/PVN IV PRN (18:27)
[2017-11-14] MEDS: ATORVASTATIN 40 MG TABLET PO SCH (20:07)
[2017-11-14] MEDS: ENOXAPARIN 40 MG/0.4 ML SQ SCH (20:07)
[2017-11-14 20:10] VITALS: BP 138/72
[2017-11-14] MEDS: METOCLOPRAMIDE 5 MG/ML, 2ML IV PRN (20:28)
[2017-11-15] MEDS: HYDROcodone/APAP 5/325 TABLET PO PRN ×3 (00:13→21:13)
[2017-11-15] MEDS: PIPERACILLIN/TAZO/PMX 3.375GM 50 ML IV SCH ×4 (03:21→20:35)
[2017-11-15 03:22] VITALS: BP 128/76
[2017-11-15 03:55] LABS: BASOPHILS # (AUTO) 0.08 x10^3/uL (0-0.1); BASOPHILS % (AUTO) 0 % (0-1); EOSINOPHILS # (AUTO) 0.73 x10^3/uL (0-0.4); EOSINOPHILS % (AUTO) 4 % (1-7); LYMPHOCYTES # (AUTO) 1.03 x10^3/uL (1-3.4); LYMPHOCYTES % (AUTO) 6 % (22-44); MD NO; MEAN CORPUSCULAR HEMOGLOBIN 28.3 pg (27.5-34.5); MEAN CORPUSCULAR HGB CONC 33.1 g/dL (33.2-36.2); MEAN CORPUSCULAR VOLUME 85.3 fL (81-97); MEAN PLATELET VOLUME 7.6 fL (7.4-10.4); MONOCYTES # (AUTO) 0.92 x10^3/uL (0.2-0.8); MONOCYTES % (AUTO) 5 % (2-9); NEUTROPHILS # (AUTO) 14.25 x10^3/uL (1.8-6.8); NEUTROPHILS % (AUTO) 84 % (42-75); PLATELET COUNT 527 x10^3/uL (130-400); RED BLOOD COUNT 3.48 x10^6/uL (4.38-5.82); RED CELL DISTRIBUTION WIDTH 14.3 % (9.4-14.8)
[2017-11-15] MEDS: ONDANSETRON 2MG/ML, 2ML IV PRN ×2 (08:09→13:28)
[2017-11-15] MEDS: FLUOXETINE 20 MG CAPSULE PO SCH (08:09)
[2017-11-15] MEDS: ASPIRIN 81 MG TABLET EC PO SCH ×2 (08:09→08:19)
[2017-11-15] MEDS: METRONIDAZOLE PMX 500MG/100ML 100 ML IV SCH ×3 (08:15→23:22)
[2017-11-15] MEDS: [UNRECOGNIZED DRUG - REMARK] SQ-INSULIN SCH (08:16)
[2017-11-15] MEDS: MEGESTROL ACETATE 400 MG/10 ML ML PO SCH (08:16)
[2017-11-15] MEDS ORDERED: BENZOCAINE 20% SPRAY 0.5ML ONE (08:47)
[2017-11-15] MEDS ORDERED: LIDOCAINE GEL 2%, 5ML ONE (08:47)
[2017-11-15 09:13] VITALS: BP 142/78
[2017-11-15] MEDS: METOCLOPRAMIDE 5 MG/ML, 2ML IV PRN (10:15)
[2017-11-15] MEDS: LORazepam 2 MG/ML, 1ML IVPush PRN (11:48)
[2017-11-15 14:34] VITALS: BP 135/78
[2017-11-15] MEDS: morphine SULFATE 10 MG/ML, 1ML IV PRN ×2 (15:38→18:07)
[2017-11-15] MEDS: ENOXAPARIN 40 MG/0.4 ML SQ SCH (16:01)
[2017-11-15] MEDS ORDERED: FAT EMULSIONS IV SCH (17:00)
[2017-11-15] MEDS ORDERED: AMINO ACID 10% IV SCH (17:00)
[2017-11-15] MEDS ORDERED: [UNRECOGNIZED DRUG - OTHER] IV SCH (17:00)
[2017-11-15] MEDS ORDERED: DEXTROSE 70% IV SCH (17:00)
[2017-11-15] MEDS ORDERED: OMNIPAQUE 350 MG/ML, 100ML BOTTLE ONE (19:05)
[2017-11-15 19:48] VITALS: BP 128/68
[2017-11-15] MEDS: ATORVASTATIN 40 MG TABLET PO SCH (20:36)
[2017-11-15] MEDS: TRAZODONE 50MG TABLET PO PRN (23:22)
[2017-11-16 02:56] VITALS: BP 145/77
[2017-11-16] MEDS: HYDROcodone/APAP 5/325 TABLET PO PRN ×2 (02:59→07:43)
[2017-11-16] MEDS: ONDANSETRON 2MG/ML, 2ML IV PRN ×2 (02:59→15:58)
[2017-11-16] MEDS: PIPERACILLIN/TAZO/PMX 3.375GM 50 ML IV SCH ×4 (02:59→20:59)
[2017-11-16 06:16] LABS: BASOPHILS % (AUTO) 1 % (0-1); EOSINOPHILS % (AUTO) 0 % (1-7); LYMPHOCYTES # (AUTO) 0.88 x10^3/uL (1-3.4); LYMPHOCYTES % (AUTO) 5 % (22-44); MD NO; MEAN CORPUSCULAR HEMOGLOBIN 28.2 pg (27.5-34.5); MEAN CORPUSCULAR HGB CONC 33.1 g/dL (33.2-36.2); MEAN PLATELET VOLUME 7.6 fL (7.4-10.4); MONOCYTES # (AUTO) 0.94 x10^3/uL (0.2-0.8); MONOCYTES % (AUTO) 6 % (2-9); NEUTROPHILS # (AUTO) 14.64 x10^3/uL (1.8-6.8); NEUTROPHILS % (AUTO) 88 % (42-75); PLATELET COUNT 479 x10^3/uL (130-400); RED BLOOD COUNT 3.34 x10^6/uL (4.38-5.82); RED CELL DISTRIBUTION WIDTH 14.2 % (9.4-14.8)
[2017-11-16 06:27] LABS: ANION GAP 6 mmol/L (5-15); CALCIUM 8.2 mg/dL (8.5-10.1); CHLORIDE 109 mmol/L (98-107)
[2017-11-16 06:28] LABS: CREATININE 0.92 mg/dL (0.7-1.3)
[2017-11-16] MEDS: [UNRECOGNIZED DRUG - REMARK] SQ-INSULIN SCH (09:00)
[2017-11-16 09:34] VITALS: BP 138/81
[2017-11-16] MEDS: METRONIDAZOLE PMX 500MG/100ML 100 ML IV SCH ×2 (10:15→16:54)
[2017-11-16] MEDS: FLUOXETINE 20 MG CAPSULE PO SCH (11:36)
[2017-11-16] MEDS: ASPIRIN 81 MG TABLET EC PO SCH (11:36)
[2017-11-16] MEDS: MEGESTROL ACETATE 400 MG/10 ML ML PO SCH (11:37)
[2017-11-16] MEDS: METOCLOPRAMIDE 5 MG/ML, 2ML IV PRN (14:56)
[2017-11-16 15:08] VITALS: BP 145/82
[2017-11-16] MEDS: FILTER, DISP 1.2 MICRON FOR TPN/PVN IV PRN (16:52)
[2017-11-16] MEDS: ENOXAPARIN 40 MG/0.4 ML SQ SCH ×2 (16:54→16:58)
[2017-11-16] MEDS ORDERED: FAT EMULSIONS IV SCH (17:00)
[2017-11-16] MEDS ORDERED: [UNRECOGNIZED DRUG - OTHER] IV SCH (17:00)
[2017-11-16] MEDS ORDERED: DEXTROSE 70% IV SCH (17:00)
[2017-11-16] MEDS ORDERED: AMINO ACID 10% IV SCH (17:00)
[2017-11-16 20:34] VITALS: BP 128/75
[2017-11-16] MEDS: ATORVASTATIN 40 MG TABLET PO SCH (21:00)
[2017-11-16] MEDS: TRAZODONE 50MG TABLET PO PRN (22:50)
[2017-11-17] MEDS: METRONIDAZOLE PMX 500MG/100ML 100 ML IV SCH ×3 (00:44→18:12)
[2017-11-17] MEDS: HYDROcodone/APAP 5/325 TABLET PO PRN ×4 (00:44→23:46)
[2017-11-17 00:51] VITALS: BP 136/72
[2017-11-17] MEDS: PIPERACILLIN/TAZO/PMX 3.375GM 50 ML IV SCH ×4 (02:27→20:15)
[2017-11-17 06:56] LABS: BASOPHILS # (AUTO) 0.05 x10^3/uL (0-0.1); BASOPHILS % (AUTO) 0 % (0-1); EOSINOPHILS % (AUTO) 0 % (1-7); LYMPHOCYTES % (AUTO) 7 % (22-44); MD NO; MEAN CORPUSCULAR HEMOGLOBIN 28.7 pg (27.5-34.5); MEAN CORPUSCULAR HGB CONC 33.7 g/dL (33.2-36.2); MEAN PLATELET VOLUME 7.8 fL (7.4-10.4); MONOCYTES # (AUTO) 1.06 x10^3/uL (0.2-0.8); MONOCYTES % (AUTO) 6 % (2-9); NEUTROPHILS # (AUTO) 14.56 x10^3/uL (1.8-6.8); NEUTROPHILS % (AUTO) 87 % (42-75); PLATELET COUNT 475 x10^3/uL (130-400); RED BLOOD COUNT 3.42 x10^6/uL (4.38-5.82); RED CELL DISTRIBUTION WIDTH 14.1 % (9.4-14.8)
[2017-11-17 07:22] VITALS: BP 145/82
[2017-11-17] MEDS: [UNRECOGNIZED DRUG - REMARK] SQ-INSULIN SCH (09:00)
[2017-11-17] MEDS: ASPIRIN 81 MG TABLET EC PO SCH (10:36)
[2017-11-17] MEDS: FLUOXETINE 20 MG CAPSULE PO SCH (10:37)
[2017-11-17 14:00] VITALS: BP 144/88
[2017-11-17 15:21] LABS: MICROSCOPIC INDICATED
[2017-11-17 15:22] LABS: CULTURE INDICATED? YES
[2017-11-17] MEDS: SODIUM CHLORIDE 0.9% 1,000 ML IV SCH (16:30)
[2017-11-17] MEDS ORDERED: SCOPOLAMINE 1MG PATCH TD SCH (16:30)
[2017-11-17] MEDS ORDERED: SCOPOLAMINE PATCH, 1.5MG PATCH.TD72 TD SCH (16:35)
[2017-11-17] MEDS ORDERED: DEXTROSE 70% IV SCH ×2 (17:00)
[2017-11-17] MEDS ORDERED: AMINO ACID 10% IV SCH ×2 (17:00)
[2017-11-17] MEDS ORDERED: FAT EMULSIONS IV SCH ×2 (17:00)
[2017-11-17] MEDS ORDERED: [UNRECOGNIZED DRUG - OTHER] IV SCH ×2 (17:00)
[2017-11-17] MEDS: FILTER, DISP 1.2 MICRON FOR TPN/PVN IV PRN (18:12)
[2017-11-17] MEDS: MEGESTROL ACETATE 400 MG/10 ML ML PO SCH (18:12)
[2017-11-17] MEDS: ENOXAPARIN 40 MG/0.4 ML SQ SCH (18:18)
[2017-11-17 20:11] VITALS: BP 130/77
[2017-11-17] MEDS: ATORVASTATIN 40 MG TABLET PO SCH (20:15)
[2017-11-17 21:12] LABS: CLOSTRIDIUM DIFFICILE ANTIGEN NEGATIVE; CLOSTRIDIUM DIFFICILE TOXIN NEGATIVE (Negative)
[2017-11-17] MEDS: TRAZODONE 50MG TABLET PO PRN (21:25)
[2017-11-18 00:13] VITALS: BP 152/82
[2017-11-18] MEDS: METRONIDAZOLE PMX 500MG/100ML 100 ML IV SCH ×3 (01:21→17:40)
[2017-11-18] MEDS: PIPERACILLIN/TAZO/PMX 3.375GM 50 ML IV SCH ×4 (01:21→19:41)
[2017-11-18] MEDS: HYDROcodone/APAP 5/325 TABLET PO PRN ×2 (04:34→22:18)
[2017-11-18 05:18] LABS: BASOPHILS # (AUTO) 0.04 x10^3/uL (0-0.1); BASOPHILS % (AUTO) 0 % (0-1); EOSINOPHILS % (AUTO) 0 % (1-7); LYMPHOCYTES # (AUTO) 0.87 x10^3/uL (1-3.4); LYMPHOCYTES % (AUTO) 5 % (22-44); MD NO; MEAN CORPUSCULAR HEMOGLOBIN 28.2 pg (27.5-34.5); MEAN CORPUSCULAR HGB CONC 33.4 g/dL (33.2-36.2); MEAN CORPUSCULAR VOLUME 84.5 fL (81-97); MEAN PLATELET VOLUME 7.8 fL (7.4-10.4); MONOCYTES # (AUTO) 0.88 x10^3/uL (0.2-0.8); MONOCYTES % (AUTO) 5 % (2-9); NEUTROPHILS # (AUTO) 14.63 x10^3/uL (1.8-6.8); NEUTROPHILS % (AUTO) 89 % (42-75); PLATELET COUNT 443 x10^3/uL (130-400); RED BLOOD COUNT 3.33 x10^6/uL (4.38-5.82); RED CELL DISTRIBUTION WIDTH 14.2 % (9.4-14.8)
[2017-11-18 05:29] LABS: ALBUMIN 1.5 g/dL (3.4-5.0); ANION GAP 8 mmol/L (5-15); CALCIUM 8.2 mg/dL (8.5-10.1); CHLORIDE 108 mmol/L (98-107)
[2017-11-18 05:33] LABS: ALANINE AMINOTRANSFERASE 11 U/L (12-78); ALKALINE PHOSPHATASE 89 U/L (45-117); BILIRUBIN,TOTAL 0.4 mg/dL (0.2-1.0); CREATININE 0.79 mg/dL (0.7-1.3); PREALBUMIN 16.5 mg/dL (20.0-40.0); TOTAL PROTEIN 8.1 g/dL (6.4-8.2); TRIGLYCERIDES 138 mg/dL (50-200)
[2017-11-18] MEDS: SODIUM CHLORIDE 0.9% 1,000 ML IV SCH (06:19)
[2017-11-18 07:30] VITALS: BP 143/80
[2017-11-18] MEDS: [UNRECOGNIZED DRUG - REMARK] SQ-INSULIN SCH (09:00)
[2017-11-18] MEDS: ASPIRIN 81 MG TABLET EC PO SCH (09:35)
[2017-11-18] MEDS: FLUOXETINE 20 MG CAPSULE PO SCH (09:35)
[2017-11-18 14:25] VITALS: BP 126/66
[2017-11-18] MEDS: MEGESTROL ACETATE 400 MG/10 ML ML PO SCH (15:40)
[2017-11-18] MEDS: ONDANSETRON 2MG/ML, 2ML IV PRN (15:48)
[2017-11-18] MEDS ORDERED: [UNRECOGNIZED DRUG - OTHER] IV SCH (17:00)
[2017-11-18] MEDS ORDERED: FAT EMULSIONS IV SCH (17:00)
[2017-11-18] MEDS ORDERED: DEXTROSE 70% IV SCH (17:00)
[2017-11-18] MEDS ORDERED: AMINO ACID 10% IV SCH (17:00)
[2017-11-18] MEDS: FILTER, DISP 1.2 MICRON FOR TPN/PVN IV PRN (17:39)
[2017-11-18] MEDS: ENOXAPARIN 40 MG/0.4 ML SQ SCH (17:40)
[2017-11-18 19:20] VITALS: BP 145/75
[2017-11-18] MEDS: METOCLOPRAMIDE 5 MG/ML, 2ML IV PRN (19:40)
[2017-11-18] MEDS: ATORVASTATIN 40 MG TABLET PO SCH (20:55)
[2017-11-18] MEDS: TRAZODONE 50MG TABLET PO PRN (21:08)
[2017-11-19] MEDS: DIPHENHYDRAMINE 25 MG CAPSULE PO PRN (00:43)
[2017-11-19] MEDS: ONDANSETRON 2MG/ML, 2ML IV PRN ×3 (00:45→15:43)
[2017-11-19 01:20] VITALS: BP 139/72
[2017-11-19] MEDS: PIPERACILLIN/TAZO/PMX 3.375GM 50 ML IV SCH ×2 (01:29→08:17)
[2017-11-19] MEDS: METRONIDAZOLE PMX 500MG/100ML 100 ML IV SCH ×2 (02:06→11:10)
[2017-11-19 06:13] LABS: BASOPHILS # (AUTO) 0.01 x10^3/uL (0-0.1); BASOPHILS % (AUTO) 0 % (0-1); EOSINOPHILS % (AUTO) 0 % (1-7); LYMPHOCYTES # (AUTO) 0.82 x10^3/uL (1-3.4); LYMPHOCYTES % (AUTO) 6 % (22-44); MD NO; MEAN CORPUSCULAR HEMOGLOBIN 28.4 pg (27.5-34.5); MEAN CORPUSCULAR HGB CONC 33.5 g/dL (33.2-36.2); MEAN CORPUSCULAR VOLUME 84.8 fL (81-97); MEAN PLATELET VOLUME 7.9 fL (7.4-10.4); MONOCYTES # (AUTO) 1.02 x10^3/uL (0.2-0.8); MONOCYTES % (AUTO) 7 % (2-9); NEUTROPHILS # (AUTO) 12.27 x10^3/uL (1.8-6.8); NEUTROPHILS % (AUTO) 87 % (42-75); PLATELET COUNT 410 x10^3/uL (130-400); RED BLOOD COUNT 3.25 x10^6/uL (4.38-5.82); RED CELL DISTRIBUTION WIDTH 14.3 % (9.4-14.8)
[2017-11-19 06:55] VITALS: BP 135/68
[2017-11-19] MEDS: METOCLOPRAMIDE 5 MG/ML, 2ML IV PRN (08:17)
[2017-11-19] MEDS: [UNRECOGNIZED DRUG - REMARK] SQ-INSULIN SCH (08:18)
[2017-11-19] MEDS: ASPIRIN 81 MG TABLET EC PO SCH (08:18)
[2017-11-19] MEDS: FLUOXETINE 20 MG CAPSULE PO SCH (08:18)
[2017-11-19] MEDS: MEGESTROL ACETATE 400 MG/10 ML ML PO SCH (08:18)
[2017-11-19] MEDS: SODIUM CHLORIDE 0.9% 1,000 ML IV SCH (11:10)
[2017-11-19 13:28] VITALS: BP 147/73
[2017-11-19] MEDS ORDERED: AMINO ACID 10% IV SCH (17:00)
[2017-11-19] MEDS ORDERED: FAT EMULSIONS IV SCH (17:00)
[2017-11-19] MEDS ORDERED: [UNRECOGNIZED DRUG - OTHER] IV SCH (17:00)
[2017-11-19] MEDS ORDERED: DEXTROSE 70% IV SCH (17:00)
[2017-11-19] MEDS: ENOXAPARIN 40 MG/0.4 ML SQ SCH (17:00)
[2017-11-19] MEDS ORDERED: LORazepam 2 MG/ML, 1ML IVPush PRN (18:30)
[2017-11-19 19:26] VITALS: BP 156/86
[2017-11-19] MEDS: ATORVASTATIN 40 MG TABLET PO SCH (20:36)
[2017-11-19] MEDS: TRAZODONE 50MG TABLET PO PRN (20:40)
[2017-11-19] MEDS: HYDROcodone/APAP 5/325 TABLET PO PRN (22:08)
[2017-11-20 01:46] VITALS: BP 151/80
[2017-11-20] MEDS: SODIUM CHLORIDE 0.9% 1,000 ML IV SCH (05:33)
[2017-11-20 07:15] VITALS: BP 151/79
[2017-11-20] MEDS: [UNRECOGNIZED DRUG - REMARK] SQ-INSULIN SCH (09:00)
[2017-11-20] MEDS: ASPIRIN 81 MG TABLET EC PO SCH (09:00)
[2017-11-20] MEDS: FLUOXETINE 20 MG CAPSULE PO SCH (09:00)
[2017-11-20] MEDS: MEGESTROL ACETATE 400 MG/10 ML ML PO SCH (09:00)
[2017-11-20 13:40] VITALS: BP 153/80
[2017-11-20] MEDS ORDERED: AMINO ACID 10% IV SCH (17:00)
[2017-11-20] MEDS ORDERED: [UNRECOGNIZED DRUG - OTHER] IV SCH (17:00)
[2017-11-20] MEDS ORDERED: DEXTROSE 70% IV SCH (17:00)
[2017-11-20] MEDS ORDERED: FAT EMULSIONS IV SCH (17:00)
== END 2017-11-20 14:00 | disposition hospice, home (50) | DRG 653 ==
LOC: ORIP 06:53 → 5SO 16:29 → 3NW 10-19 11:33 → ICU 10-20 16:41 → 3NW 10-22 11:45
PROVIDERS: ADMIT Urology; ATTEND Urology
PROC: 07BC0ZZ Excision of Pelvis Lymphatic, Open Approach (ICD-10-PCS; 2017-10-16)
PROC: 0TTB0ZZ Resection of Bladder, Open Approach (ICD-10-PCS; 2017-10-16)
PROC: 0T180ZC Bypass Bilateral Ureters to Ileocutaneous, Open Approach (ICD-10-PCS; 2017-10-16)
PROC: 0DTJ0ZZ Resection of Appendix, Open Approach (ICD-10-PCS; 2017-10-16)
PROC: 04U Lower Arteries, Supplement (ICD-10-PCS; 2017-10-16)
PROC: 0T780DZ Dilation of Bilateral Ureters with Intraluminal Device, Open Approach (ICD-10-PCS; 2017-10-16)
PROC: 0VT00ZZ Resection of Prostate, Open Approach (ICD-10-PCS; principal; 2017-10-16 09:00)
PROC: 5A1935Z Respiratory Ventilation, Less than 24 Consecutive Hours (ICD-10-PCS; 2017-10-20)
PROC: 0BH17EZ Insertion of Endotracheal Airway into Trachea, Via Natural or Artificial Opening (ICD-10-PCS; 2017-10-20)
PROC: 02HV33Z Insertion of Infusion Device into Superior Vena Cava, Percutaneous Approach (ICD-10-PCS; 2017-10-20)
PROC: 0DQP0ZZ Repair Rectum, Open Approach (ICD-10-PCS; 2017-10-20)
PROC: 0D1N0Z4 Bypass Sigmoid Colon to Cutaneous, Open Approach (ICD-10-PCS; 2017-10-20)
PROC: 02HV33Z Insertion of Infusion Device into Superior Vena Cava, Percutaneous Approach (ICD-10-PCS; 2017-10-23)
PROC: B5181ZA Fluoroscopy of Superior Vena Cava using Low Osmolar Contrast, Guidance (ICD-10-PCS; 2017-10-23)
PROC: 0W9F30Z Drainage of Abdominal Wall with Drainage Device, Percutaneous Approach (ICD-10-PCS; 2017-11-01)
PROC: 0W9F3ZZ Drainage of Abdominal Wall, Percutaneous Approach (ICD-10-PCS; 2017-11-05)
PROC: 0DH67UZ Insertion of Feeding Device into Stomach, Via Natural or Artificial Opening (ICD-10-PCS; 2017-11-15)
PROC: 0T9B70Z Drainage of Bladder with Drainage Device, Via Natural or Artificial Opening (ICD-10-PCS; 2017-11-17)
PROC: 3E0336Z Introduction of Nutritional Substance into Peripheral Vein, Percutaneous Approach (ICD-10-PCS; 2017-11-17)
DX: C68.0 Malignant neoplasm of urethra (principal); A41.9 Sepsis, unspecified organism; J96.00 Acute respiratory failure, unspecified whether with hypoxia or hypercapnia; E43 Unspecified severe protein-calorie malnutrition; K65.1 Peritoneal abscess; Z99.11 Dependence on respirator [ventilator] status; K56.7 Ileus, unspecified; S36.81XA Injury of peritoneum, initial encounter; I47.1 Supraventricular tachycardia; J98.11 Atelectasis; C61 Malignant neoplasm of prostate; C67.9 Malignant neoplasm of bladder, unspecified; D64.9 Anemia, unspecified; Z68.22 Body mass index [BMI] 22.0-22.9, adult; I10 Essential (primary) hypertension; I25.2 Old myocardial infarction; K80.20 Calculus of gallbladder without cholecystitis without obstruction; N40.0 Benign prostatic hyperplasia without lower urinary tract symptoms; Z82.49 Family history of ischemic heart disease and other diseases of the circulatory system; Z85.46 Personal history of malignant neoplasm of prostate; Z85.50 Personal history of malignant neoplasm of unspecified urinary tract organ; Z87.891 Personal history of nicotine dependence; X58.XXXA Exposure to other specified factors, initial encounter; Y93.89 Activity, other specified; Y92.89 Other specified places as the place of occurrence of the external cause; Y99.2 Volunteer activity; R73.9 Hyperglycemia, unspecified
CPT/HCPCS: 10160; 36415; 36569; 36600; 49405; 50684; 71010; 74000; 74177; 74340; 75989; 76000; 76937; 77001; 80048; 80053; 81001; 82040; 82533; 82570; 82803; 82962; 83735; 84100; 84134; 84478; 84484; 84550; 85014; 85018; 85025; 86850; 86900; 87040; 87070; 87075; 87077; 87081; 87086; 87106; 87186; 87205; 87324; 88304; 88305; 88307; 88309; 88331; 88341; 88342; 93005; 93306; 94002; 94003; 99156; 99157; C1729; J0171; J0610; J0696; J1100; J1650; J1815; J2250; J2405; J2543; J2550; J2704; J2710; J3010; J3475; J3490; Q0162; Q9967; C1751; C1760; C1765; C2617; C9113; G0461; J0330; J2060; J2270; J2310; J2370; J2765; J3420; J3480; J7030; J7050; J7060; J7120; Q0163